=== PATIENT | female | born 1950 | race African-American/Black ===

== ENCOUNTER 2025-02-14 14:02 | Outpatient (AMB) | payer OTHER, SELFPAY ==
--- NOTE | 2025-02-14 14:08 | MHC.PC.OV ---
Vital Signs 02/14/25 14:13 Height 5 ft 3.5 in Weight 142 lb 8 oz BMI 24.8 BP 110/64 Blood Pressure Location Lt brachial Position Sitting Respiration 16 Pulse 68 Pulse Source Pulse Oximeter Temp 96.8 F Temp Source Temporal Artery Scan Pulse Oximetry (%) 98 Oxygen Delivery Method Room Air Intake Visit Reasons: New Patient Re [facility] Vocational Placement Specialist Required: No Accompanied by: Self / Same As Patient Allergies No Known Allergies Allergy (Verified 02/14/25 14:15) Medication List - Last Reconciled 02/14/25 by Rita Miranda MD acyclovir 400 mg PO BID apixaban (Eliquis) 2.5 mg PO BID ascorbate calcium (vitamin C) 500 mg PO DAILY atropine 1% 1 drp ophthalmic (eye) BID brimonidine 0.1% (Alphagan P) 1 drp ophthalmic-Right TID calcium carbonate 600 mg PO DAILY cholecalciferol (vitamin D3) 50 mcg PO DAILY coenzyme Q10 100 mg PO DAILY cyanocobalamin (vitamin B-12) 1,000 mcg PO 2XW dorzolamide-timolol (PF) 2-0.5 % (Cosopt (PF)) 1 drp ophthalmic-Right TID hydrochlorothiazide 12.5 mg PO DAILY latanoprostene bunod 0.024% (Vyzulta) 1 drp ophthalmic-Right BEDTIME lenalidomide mg PO methazolamide 50 mg PO TID prednisolone acetate 1% 1 drp ophthalmic (eye) QID simvastatin 20 mg PO QPM vitamins A,C,S-eqcc-goxihn 4,296 mcg-226 mg-90 mg (PreserVision AREDS) 1 cap PO BID Tobacco use date assessed: 02/14/25 Fall risk assessment: No Falls in past year Last assessed Fall Risk: 02/14/25 Dental Screening Dental Screen Date: 02/14/25 Did you have a dental visit in the last 12 months?: Yes Did you have a dental problem in the last 6 months where you did not have access to dental care?: No Was dental information given to patient?: Patient has dentist HPI HPI Comments History of Present Illness Details The patient is a 75 year old female presenting to [facility]. Cardiovascular History/HTN/Hyperlipidemia: The patient has a history of chest pain, for which she was evaluated in the ER and subsequently wore a Holter monitor. She has been followed by cardiology, previously by Dr. Hampton at [facility] and now by Dr. Deborah Welch. She has a follow-up appointment with her product development manager scheduled for June. She reports some recent leg swelling that improves with wearing compression socks. Multiple Myeloma/Amyloidosis: The patient has specialists at [facility] and [facility]. History of Colon Polyps: The patient has a history of colon polyps and underwent a colonoscopy in March and a subsequent one around December. Another polyp was found during the more recent procedure, which was described as benign. She denies any recent bleeding episodes. Will obtain records. History of DVT- on continued eliquis due to concurrent malignancy History of Hyperthyroidism- due for repeat tfts Preventative Care: The patient reports being up-to-date on her COVID and flu shots, which she received in the fall. She has also received the RSV vaccine. She sees an psychological anthropologist at [facility] in [place], and last saw her this month. Notes significantly reduced vision in left eye. Was previously seeing Dr. London. [facility] Medical History (Updated 02/14/25 @ 18:30 by Rita Miranda MD) DVT (deep venous thrombosis) Amaurosis fugax Central retinal vein occlusion Hyperparathyroidism Thyroid nodule PVCs (premature ventricular contractions) Hyperthyroidism Primary hypertension Amyloidosis Multiple myeloma Colon polyp Surgical History (Updated 02/14/25 @ 13:18 by Rita Miranda MD) H/O: hysterectomy History of colonoscopy (~12/12/24) Social History Housing: House Patient Tobacco Use Status: Never used Tobacco e-Cigarette/Vaping Use: Never Used Current occupational status: retired Questionnaire PHQ-9 Over the last 2 weeks, how often have you been bothered by any of the following problems? 1. Little interest or pleasure in doing things: not at all 2. Feeling down, depressed, or hopeless: not at all 3. Trouble falling or staying asleep, or sleeping too much: not at all 4. Feeling tired or having little energy: not at all 5. Poor appetite or overeating: not at all 6. Feeling bad about yourself - or that you are a failure or have let yourself or your family down: not at all 7. Trouble concentrating on things, such as reading the newspaper or watching television: not at all 8. Moving or speaking so slowly that other people could have noticed. Or the opposite - being so fidgety or restless that you have been moving around a lot more than usual: not at all 9. Thoughts that you would be better off or of hurting yourself in some way: not at all Total score: 0 Depression Screening Interpretation: Negative Depression Screening Done: Yes 99742 - PHQ-9 Billing: Yes Source: Developed by Drs. Herman August, Hannah Bess, London Higgins and colleagues, with an educational brittani from [employer]. Thrive Questionnaire Date Thrive assessed: 02/14/25 I am a: Patient What is your living situation today?: I have a steady place to live Within the past 12 months, did the food you bought not last and you didn't have the money to get more?: Often true Within the past 12 months, did you worry whether your food would run out before you got money to buy more?: Never true Do you have trouble paying for medicines?: No Do you have trouble getting transportation to medical appointments?: No Do you have trouble paying your heating and electricity bill?: No Do you have trouble taking care of your child, family member or friend?: No Do you have trouble with day-to-day activities such as bathing, preparing meals, shopping, managing finances, etc.?: No Are you currently unemployed and looking for a job?: No Are you interested in more education?: No Please select the resources that you would like help with: None Currently or been in a relationship where the following occur: I choose not to answer THRIVE Score: 1 AUDIT C Alcohol Use Questionnaire (AUDIT-C) 1. How often do you have a drink containing alcohol?: Never 3. How often do you have six or more drinks on one occasion?: Never Total Score: 0 ROYER-7 AMB Questionnaire ROYER-7 Date ROYER - 7 assessed: 02/14/25 Feeling nervous, anxious, or on edge: 0 = Not at all Not being able to stop or control worryin = Not at all Worrying too much about different things: 0 = Not at all Trouble relaxin = Not at all Being so restless that it is hard to sit still: 0 = Not at all Becoming easily annoyed or irritable: 0 = Not at all Feeling afraid as if something awful might happen: 0 = Not at all Total ROYER-7 score (0-4 normal; 5-9 mild; 10-14 moderate; 15-21 severe): 0 Source: Developed by Drs. Herman August, Hannah Bess, London Higgins and colleagues, with an educational brittani from [employer]. Review of Systems Narrative Review of Systems - Constitutional: Denies systemic symptoms but reports feeling overwhelmed by multiple appointments and expresses feeling good with a strong support system. - Cardiovascular: Reports a history of chest pain. Denies current chest pain. - GI: Denies rectal bleeding. - Musculoskeletal: per hpi Physical exam (Primary Care) Vital Signs: Last Vital Signs Temp 96.8 F 02/14/25 14:13 Pulse 68 02/14/25 14:13 Resp 16 02/14/25 14:13 BP 110/64 02/14/25 14:13 Pulse Ox 98 02/14/25 14:13 Oxygen Delivery Method Room Air 02/14/25 14:13 BMI result Body Mass Index 24.8 Tobacco/Smoking Status: Tobacco use Status Tobacco use date assessed 02/14/25 02/14/25 14:12 Patient Tobacco Use Status Never used Tobacco 02/14/25 14:22 e-Cigarette/Vaping Use Never Used 02/14/25 14:22 PHQ-9: PHQ-9 Score PHQ-9: Total score 0 02/14/25 14:46 Depression Screening Interpretation: Negative Thrive Assessment: Date of Thrive Assessment Date Thrive assessed 02/14/25 02/14/25 14:12 Currently or been in a relationship where the following occur: I choose not to answer Narrative Physical Exam - Cardiovascular: Regular rhythm. Normal S1/S2. A soft murmur is present. - Respiratory: Lungs are clear to auscultation bilaterally. No wheezing. - Abdomen: Soft with normal bowel sounds. Non-tender to deep palpation. Reports tenderness to tapping, which she relates to needing to use the bathroom. - Lymphatic: No cervical or supraclavicular lymphadenopathy. - Extremities: no lower extremity edema bilaterally. Coding Level of Care Code Est Pt Level 4 (05952) Add On Problem Visit Only Diagnoses Multiple myeloma, remission status unspecified C90.00 Multiple myeloma remission status: unspecified Amyloidosis, unspecified type E85.9 Amyloidosis type: unspecified amyloidosis Primary hypertension I10 Hyperthyroidism E05.90 Additional Codes PHQ-9 - 55521 - PHQ-9 Billing: Yes ([id number]) Assessment & Plan Assessment & Plan (1) Multiple myeloma: Code(s): C90.00 - Multiple myeloma not having achieved remission Category: Medical Qualifiers: Multiple myeloma remission status: unspecified Qualified Code(s): C90.00 - Multiple myeloma not having achieved remission (2) Amyloidosis: Code(s): E85.9 - Amyloidosis, unspecified Category: Medical Qualifiers: Amyloidosis type: unspecified amyloidosis Qualified Code(s): E85.9 - Amyloidosis, unspecified (3) Primary hypertension: Code(s): I10 - Essential (primary) hypertension Category: Medical (4) Hyperthyroidism: Code(s): E05.90 - Thyrotoxicosis, unspecified without thyrotoxic crisis or storm Category: Medical Plan Assessment and Plan 1. Re-establishing care - The patient is a 75-year-old female here to re-establish primary care. - The patient will complete fasting labs today, including a CBC, comprehensive panel, TSH, B12, and vitamin D. A wellness visit is scheduled for April after her sub-specialty appointments in March. 2. Cardiovascular issues (History of chest pain, Heart murmur, HTN, Hyperlipidemia) - The patient is followed by cardiology, currently seeing Dr. Deborah Alvarado, with a follow-up in June. - She takes hydrochlorothiazide for blood pressure, which is reportedly well-controlled. - She takes simvastatin 20 mg for cholesterol. - Labs ordered today will check potassium and cholesterol levels. - She will continue her current medications. - She reports using compression stockings and will be advised to use higher-strength 20-30 mmHg stockings for flights. 3. Multiple myeloma/amyloidosis - continue current management 4. History of Colon Polyps - The patient had a colonoscopy in December 2024 where a benign polyp was found. - She denies any bleeding. - Will attempt to obtain the pathology report from [facility] - Given her history continued surveillance is appropriate 5. Hyperthyroidism- check thyroid panel, due for follow up with [facility] endocrinology Plan - Renewed prescriptions - Ordered fasting labs including CBC, comprehensive panel, TSH, B12, and vitamin D. - Will request medical records - Schedule a wellness visit for April. Patient Instructions - Continue to take your medications as prescribed. - You have a follow-up appointment for your yearly physical scheduled for April. - Continue your scheduled follow-up appointments with your specialists - For your upcoming flight to [place], please wear the tighter, 20-30 mmHg strength, compression stockings. - Please contact the office by phone or through the patient portal if any new concerns arise. Orders: Orders Magnesium Today C90.00 - Multiple myeloma not having achieved remission, E05.90 - Thyrotoxicosis, unspecified without thyrotoxic crisis or storm, E85.9 - Amyloidosis, unspecified, I10 - Essential (primary) hypertension Lipid Panel Today C90.00 - Multiple myeloma not having achieved remission, E05.90 - Thyrotoxicosis, unspecified without thyrotoxic crisis or storm, E85.9 - Amyloidosis, unspecified, I10 - Essential (primary) hypertension Vitamin D 25-OH Total Today C90.00 - Multiple myeloma not having achieved remission, E05.90 - Thyrotoxicosis, unspecified without thyrotoxic crisis or storm, E85.9 - Amyloidosis, unspecified, I10 - Essential (primary) hypertension Complete Blood Count Auto Diff Today C90.00 - Multiple myeloma not having achieved remission, E05.90 - Thyrotoxicosis, unspecified without thyrotoxic crisis or storm, E85.9 - Amyloidosis, unspecified, I10 - Essential (primary) hypertension Comprehensive Met. Panel Today C90.00 - Multiple myeloma not having achieved remission, E05.90 - Thyrotoxicosis, unspecified without thyrotoxic crisis or storm, E85.9 - Amyloidosis, unspecified, I10 - Essential (primary) hypertension TSH reflex Free T4 Today C90.00 - Multiple myeloma not having achieved remission, E05.90 - Thyrotoxicosis, unspecified without thyrotoxic crisis or storm, E85.9 - Amyloidosis, unspecified, I10 - Essential (primary) hypertension Vitamin B12 Today C90.00 - Multiple myeloma not having achieved remission, E05.90 - Thyrotoxicosis, unspecified without thyrotoxic crisis or storm, E85.9 - Amyloidosis, unspecified, I10 - Essential (primary) hypertension Microalbumin, Random (w Creat) Today C90.00 - Multiple myeloma not having achieved remission, E05.90 - Thyrotoxicosis, unspecified without thyrotoxic crisis or storm, E85.9 - Amyloidosis, unspecified, I10 - Essential (primary) hypertension Medications: New simvastatin 20 mg PO QPM 90 tabs 3RF cholecalciferol (vitamin D3) 50 mcg PO DAILY 90 caps 3RF hydrochlorothiazide 12.5 mg PO DAILY 90 tabs 3RF apixaban (Eliquis) 2.5 mg PO BID 60 tabs 11RF
[2025-02-14 14:13] VITALS: BP 110/64; PULSE 68; RESP 16; TEMP 36; O2SAT 98; BMI 24.8
--- OUTSIDE RECORDS SUMMARY | 2025-02-14 19:27 | XMS_ITS | Encounter Summary ---
Author Organization [facility] Address [address] [place] [address] Care Team Providers Care Client Service Associate Name Role Phone Physician, Jo Pcp Primary Care Provider Unavaila ble Encounter Details Date Type Department Care Team ([facility] st Contact Info) Description 12/16/2024 Results Follow-Up Gastroenterology - [address] [phone] Jamie Stevenson MD [address] [place] [id number] Social History Tobacco Use Types Packs/Day Years Used Date Smoking Tobacco: Never Smokeless Tobacco: Never Alcohol Use Standard Drinks/Week Comments No 0 (1 standard drink = 0.6 oz pur e alcohol) Interpersonal Safety Answer Date Record ed Physical Abuse Unrecognized value 12/12/2024 Verbal Abuse Unrecognized value 12/12/2024 Comments No Sex and Gender Information Value Date Recorded Sex Assigned at Not on file Legal Sex Female 3:52 PM EST Gender Identity Not on file Sexual Orientation Not on file documented as of this encounter Plan of Treatment Not on file documented as of this encounter Goals Goal Patient Goal Type Associated Problems Recent Progress Patient-Stated? Author Adan simmons Goal Care Plan Autogenerated Problem No Emelia Agustin documented as of this encounter Visit Diagnoses Not on filedocumented in this encounter Additional Health Concerns Active Problems Noted Date Diagnosed Date Autogenerated Problem 12/02/2024 documented as of this encounter Care Teams Client Service Associate Relationship Specialty Start Date End Date Physician, No Pcp PCP - General 12/12/24 documented as of this encounter
--- OUTSIDE RECORDS SUMMARY | 2025-02-14 19:27 | XMS_ITS | Encounter Summary ---
Author Organization [facility] Address [address] [place] [phone] Phone Care Team Providers Care Tax Services Intern Name Role Phone Rita Miranda MD Primary Care Provider + Bela London MD Unavailable Omkar Lindsay MD Unavailable Tre Dickinson MD Unavailable Raj Bruner MD Unavailable [phone] Irina Hampton MD Unavailable [phone] Markus Macdonald MD Unavailable Petty Schultz MD Unavailable [phone] Encounter Details Date Type Department Care Team (Late st Contact Info) Description 11/27/2023 Transcribe Orders [facility] [address] Pcp, Unknown Social History Tobacco Use Types Packs/Day Years Used Date Smoking Tobacco: Never Smokeless Tobacco: Never Alcohol Use Standard Drinks/Week Comments Not Currently 0 (1 standard drink = 0.6 oz pur e alcohol) Education Answer Date Recorded Are you interested in more education? Not on lisset e 07/01/2022 Are you concerned about learning? Not on file 07/01/2022 No 07/01/2022 No 07/01/2022 Digital Access Answer Date Recorded No 07/30/2022 No 07/30/2022 Reliable internet access at home? Not on file 07/30/2022 Device with a working camera? Not on file Comments Unknown Sex and Gender Information Value Date Recorded Sex Assigned at Female 02/03/2022 10:41 AM EST Legal Sex Female 11:45 AM EST Gender Identity Female 02/03/2022 10:41 AM EST Sexual Orientation Straight 02/03/2022 10 :41 AM EST documented as of this encounter Plan of Treatment Upcoming Encounters Date Type Department Care Team (Late st Contact Info) Description 04/01/2025 1:20 PM EST Office Visit [facility] [address] [place] [address] Viridiana Rosario MD [address] [facility] [address] [place] [address] [email or web address] 04/04/2025 11:50 AM EST Blood Draw [facility] Services, [address] [place] [address] Petty Schultz MD [address] [place] [phone] [email or web address] 04/04/2025 1:00 PM EST Office Visit [facility], Division of Hematologic Oncology, [address] [place] [address] Petty Schultz MD [address] [place] [id number] [email or web address] 09/30/2025 1:30 PM EDT Blood Draw Laboratory Services, [address] [place] [address] Petty Schultz MD [address] [place] [id number] [email or web address] 09/30/2025 2:30 PM EDT Office Visit [facility], Division of Hematologic Oncology, [facility] [address] [place] [address], [address] [place] [address] Petty Schultz MD [address] [place] [id number] [email or web address] documented as of this encounter Visit Diagnoses Not on filedocumented in this encounter Care Teams Tax Services Intern Relationship Specialty Start Date End Date Rita Miranda MD PCP - General Internal Medicine 04/19/16 Bela London MD [address] [place] [phone] Ophthalmology 09/16/17 Omkar Lindsay MD [address] [place] [address] Ophthalmology 09/16/17 Tre Dickinson MD [address] [place] [address] Hematology and Oncology 12/21/21 Raj Bruner MD [address] [place] [address] Myeloma Clinic, Floor [address] [place] [address] [email or web address] Hematology and Oncology 12/21/21 03/31/24 Irina Hampton MD [address] [place] [address] Cardiology 02/04/22 Markus Macdonald MD [address] [facility] [place] [address] [email or web address] 03/28/23 Petty Schultz MD [address] [place] [phone] [email or web address] Hematology and Oncology 04/01/24 documented as of this encounter Additional Source Comments The information contained in this document represents components of the legal health record. It is not the complete legal health record.[facility]
--- OUTSIDE RECORDS SUMMARY | 2025-02-14 19:27 | XMS_ITS | Clinical Summary ---
Author Organization [facility] 299 Formerly [facility] Address [address] [place] [address] Phone Care Team Providers Care Home Care Giver Name Role Phone Physician, No Pcp Primary Care Provider Unavaila ble Allergies Active Allergy Reactions Criticality Noted Date Comments Bimatoprost Unknown 09/14/2017 Medications brimonidine tartrate (ALPHAGAN P OPHT) None Entered Active tafluprost, PF, 0.0015 % dropperette apply to the eye. Active calcium carbonate 250 mg/mL (100 mg/mL elemental calcium) suspension Take 2 mL (500 mg total) by mouth daily. Active cholecalciferol (VITAMIN D-3) 25 mcg (1,000 unit) tablet Take 1 tablet (1,000 Units total) by mouth 1 (one) time each day. Active cyanocobalamin (VITAMIN B-12) 1,000 mcg tablet TAKE 1 TABLET BY MOUTH TWICE PER WEEK Active denosumab (XGEVA SUBQ) Inject 120 mg under the skin every 30 (thirty) days. 4 Active methazolAMIDE (NEPTAZANE) 50 mg tablet Take 1 tablet (50 mg total) by mouth. Active coenzyme Q-10 100 mg capsule Take 1 capsule (100 mg total) by mouth daily. Active apixaban (ELIQUIS) 2.5 mg tablet Take 1 tablet (2.5 mg total) by mouth 2 (two) times a day. Active simvastatin (ZOCOR) 20 mg tablet Take 1 tablet (20 mg total) by mouth at bedtime. Active lenalidomide (REVLIMID) 5 mg capsule Take 2 capsules (10 mg total) by mouth Active dorzolamide-annemarie oloL (Cosopt) 22.3-6.8 mg/mL ophthalmic solution Administer 1 drop into affected eye(s). 9 Active vitamins A,C,E-zinc-hilda er 4,296 mcg-226 mg-90 mg capsule Take 1 capsule by mouth 2 times daily. Active prednisoLONE acetate (PRED FORTE) 1 % ophthalmic suspension LOCATION: LEFT EYE. 1 DROP TO LEFT EYE 4 TIMES PER DAY 4 Active nitroglycerin (NITROSTAT) 0.[address] 1 tablet (0.4 mg total) under the tongue. 4 Active vitamin C tablet Take 1 tablet (100 mg total) by mouth daily. 1 Active acyclovir (ZOVIRAX) 400 mg tablet Take 1 tablet (400 mg total) by mouth 2 (two) times a day. for 30 days Active atropine 1 % ophthalmic solution LOCATION: LEFT EYE. 1 DROP TO LEFT EYE EVERY 12 HOURS 4 Active difluprednate (DUREZOL) 0.05 % OPHTHalmic solution PLACE 2 DROPS INTO LEFT EYE TWICE A DAY 4 Active Cosopt, PF, 2-0.5 % dropperette INSTILL 1 DROP INTO BOTH EYES 3 TIMES A DAY DIRECTED Active Vyzulta 0.024 % drops Administer 1 drop into both eyes. at ebdtime as directed Active bisacodyL (DULCOLAX) 5 mg EC tablet Take 2 tablets by mouth right before beginning bowel prep. See instructions provided by the office 2 tablet 5 Active polyethylene glycol (Golytely) 236-22.74-6.74 -5.86 gram solution Take 4L by mouth once for one dose. May substitue any PEG. Starting at 2PM the day before your procedure drink 1 8oz glasses at your own pace until you complete half of the gallon. Finish 2nd half of the gallon at 8PM. 4000 mL 5 Active Active Problems Problem Noted Date Diagnosed Date Bright red rectal bleeding 01/10/2024 Heme positive stool 01/10/2024 Glaucoma 01/26/2015 Encounters Date Type Department Care Team Description 12/16/2024 Results Follow-Up Gastroenterology - [address] [place] [address] [phone] Jamie Stevenson MD 12/12/2024 12:46 PM EDT Anesthesia Event [facility] Endoscopy [address] [place] [phone] Charanjit Gandhi MD 12/12/2024 11:12 AM EDT - 12/12/2024 11:59 PM EDT Hospital Encounter [facility] Endoscopy [address] [place] [phone] Jamie Stevenson MD Dickman, Christy L, CRNA Hx of colonic polyps Discharge Disposition: Home or Self Care 12/10/2024 Telephone Gastroenterology - 299 [facility] [address] [phone] Jamie Stevenson MD from Last 3 Months Surgical History Surgery Date Site/Laterality Comments OTHER SURGICAL HISTORY 1989 PROCEDURE: HISTORICAL TOTAL HYSTERECTOMY W/O BSO HYSTERECTOMY Medical History Medical History Date Comments Personal history of multiple myeloma Amyloidosis ([facility] V24, [facility] V28) DVT (deep venous thrombosis) ([facility] V24, [facility] V28) Remi's disease Eosinophilic esophagitis Glaucoma Hyperlipidemia Colon polyp Family History Medical History Relation Name Comments Other cancer Mother luekemia Breast cancer Neg Hx Colon cancer Neg Hx Ovarian cancer Neg Hx Relation Name Status Comments Mother Social History Tobacco Use Types Packs/Day Years [...] on file Sexual Orientation Not on file Obstetrics History Para Term AB IAB SAB Ectopic Multiple Livin g Live Births 1 Last Filed Vital Signs Vital Sign Reading Time Taken Comments Blood Pressure 134/75 12/12/2024 1:28 PM EDT Pulse 68 12/12/2024 1:28 PM EDT Temperature 36.8 C (98.3 F) 12/12/2024 1:08 PM EDT Respiratory Rate 16 12/12/2024 1:28 PM EDT Oxygen Saturation 98% 12/12/2024 1:28 PM EDT Inhaled Oxygen Concentration - - Weight 63 kg (139 lb) 12/12/2024 11:39 AM EDT Height 160 cm (5' 3 ) 12/12/2024 11:39 AM EDT Body Mass Index 24.62 12/12/2024 11:39 AM EDT Plan of Treatment Health Maintenance Due Date Last Done Comments DTaP,Tdap,and Td Vaccines (1 - Tdap) 01/04/1968 Cholesterol Screening (Lipid Panel) 02/02/2022 Hepatitis C Screening 02/02/2022 Medicare Annual Wellness Visit 02/02/2022 Osteoporosis Screening (Bone Density Screening) 02/02/2022 Social Influencers of Health Screening 02/02/2022 Depression Screening 03/06/2024 COVID-19 Vaccine ( season) 2024 11/24/2023, 01/17/2023, 12/02/2021, Additional history exists Hypertension/CHF/CAD Annual BMP Blood Test 10/03/2025 10/03/2024, 10/03/2024, 10/01/2024, Additional history exists Falls Risk Assessment 12/12/2025 12/12/2024 Zoster Vaccines Completed 11/19/2018, 09/2018, 09/22/2011 Pneumococcal Vaccine: 50+ Years Completed 09/24/2021, 12/11/2015, 01/10/2014 RSV Immunization Adult Patients Completed 01/15/2024 Breast Cancer Screening Discontinued 11/06/19, 11/03/2023, 10/07/2022, Additional history exists Influenza Vaccine Completed 12/06/2024, , 12/14/2022, Additional history exists Colorectal Cancer Screening: Colonoscopy Discontinued 12/12/2024, 03/12/2024, 01/11/2024 HIB Vaccines Aged Out No longer eligi ble based on patient's age to complete this topic HPV Vaccines Aged Out No longer eligi ble based on patient's age to complete this topic Hepatitis A Vaccines Aged Out No long er eligible based on patient's age to complete this topic Hepatitis B Vaccines Aged Out No long er eligible based on patient's age to complete this topic IPV Vaccines Aged Out No longer eligi ble based on patient's age to complete this topic MMR Vaccines Aged Out No longer eligi ble based on patient's age to complete this topic Meningococcal ACWY Vaccine Aged Out N o longer eligible based on patient's age to complete this topic Meningococcal B Vaccine Aged Out No l onger eligible based on patient's age to complete this topic RSV Immunization Patients Under 20 months Aged Out No longer eligible based on patient's age to complete this topic Varicella Vaccines Aged Out No longer eligible based on patient's age to complete this topic Goals Goal Patient Goal Type Associated Problems Recent Progress Patient-Stated? Author Autogenera iris Goal Care Plan Autogenerated Problem No Emelia Agustin Procedures Procedure Name Priority Date/Time Associated Diagnosis Comments COLONOSCOPY Routine 12/12/2024 1:07 PM EDT Hx of colonic polyps TISSUE EXAM Routine 12/12/2024 12:59 PM EDT Hx of colonic polyps MG MAMMO DIGITAL SCREENING W LUIZ BILAT Routine 11/05/2024 10:04 AM EDT Encounter for screening mammogram for breast cancer from Last 3 Months or Most Recently Relevant to Health Maintenance Results * COLONOSCOPY Anesthesia - MAC; [facility] ENDOSCOPY (12/12/2024 1:07 PM EDT) Anatomical Region Laterality Modality Endoscopy 12/12/2024 12:1 0 PM EDT Impressions 12/12/2024 1:09 PM EDT - One 4 mm polyp in the ascending colon. Biopsied. - The examination was otherwise normal on direct and retroflexion views. Recommendation: - Await pathology results. - Repeat colonoscopy in 2 years for surveillance. Narrative 12/12/2024 1:09 PM EDT [facility] GI Patient Name: Roxana Ball Procedure Date: 12/12/2024 12:10 PM Date of : 1950 Age: 74 Room: ROOM 16 Gender: Female Note Status: Finalized Attending MD: Jamie Stevenson MD, Procedure Date No Time: 12/12/2024 Procedure: Colonoscopy Indications: Surveillance: Piecemeal removal of large sessile adenoma last colonoscopy (< 3 yrs) Providers: Jamie Stevenson MD Referring MD: Jamie Stevenson MD Medicines: Propofol per Anesthesia Complications: No immediate complications. Estimated Blood Loss: Estimated blood loss: none. Procedure: Pre-Anesthesia Assessment: - ASA Grade Assessment: II - A patient with mild systemic disease. After I obtained informed consent, the scope was passed under direct vision. Throughout the procedure, the patient's blood pressure, pulse, and oxygen saturations were monitored continuously.The Colonoscope was introduced through the anus and advanced to the cecum, identified by appendiceal orifice and ileocecal valve. The colonoscopy was performed without difficulty. The patient tolerated the procedure well. The quality of the bowel preparation was adequate. Findings: The perianal and digital rectal examinations were normal. A 4 mm polyp was found in the ascending colon. The polyp was sessile. This was biopsied with a cold jumbo forceps for histology. The exam was otherwise without abnormality on direct and retroflexion views. Procedure Code(s): --- Professional --- 71111, Colonoscopy, flexible; with biopsy, single or multiple Diagnosis Code(s): --- Professional --- Z86.010, Personal history of colonic polyps D12.2, Benign neoplasm of ascending colon CPT copyright 2020 [employer]. All rights reserved. The codes documented in this report are preliminary and upon clerical investigator review may be revised to meet current compliance requirements. Jamie Stevenson MD 12/12/2024 1:09:17 PM This report has been signed electronically.Jamie Stevenson MD Number of Addenda: 0 Note Initiated On: 12/12/2024 12:10 PM Scope In: Scope Out: Endoscopy Department at [facility] - [address] [place] [phone] Procedure Note Jamie Stevenson MD - 12/12/2024 [facility] GI Patient Name: Roxana Ball Procedure Date: 12/12/2024 12:10 PM Date of : 1950 Age: 74 Room: ROOM 16 Gender: Female Note Status: Finalized Attending MD: Jamie Stevenson MD, Procedure Date No Time: 12/12/2024 Procedure: Colonoscopy Indications: Surveillance: Piecemeal removal of large sessile adenoma last colonoscopy (< 3 yrs) Providers: Jamie Stevenson MD Referring MD: Jamie Stevenson MD Medicines: Propofol per Anesthesia Complications: No immediate complications. Estimated Blood Loss: Estimated blood loss: none. Procedure: Pre-Anesthesia Assessment: - ASA Grade Assessment: II - A patient with mild systemic disease. After I obtained informed consent, the scope was passed under direct vision. Throughout theprocedure, the patient's blood pressure, pulse, and oxygen saturations were monitored continuously.The Colonoscope was introduced through the anus and advanced to the cecum, identified by appendiceal orifice and ileocecal valve. The colonoscopy was performed without difficulty. The patient tolerated the procedure well. The quality of the bowel preparation was adequate. Findings: The perianal and digital rectal examinations were normal. A 4 mm polyp was found in the ascending colon. The polyp was sessile. This was biopsied with a coldjumbo forceps for histology. The exam was otherwise without abnormality ondirect and retroflexion views. Procedure Code(s): --- Professional --- 09676, Colonoscopy, flexible; with biopsy, singleor multiple Diagnosis Code(s): --- Professional --- Z86.010, Personal history of colonic polyps D12.2, Benign neoplasm of ascending colon CPT copyright 2020 [employer]. All rights reserved. The codes documented in this report are preliminary and upon clerical investigator reviewmay be revised to meet current compliance requirements. Jamie Stevenson MD 12/12/2024 1:09:17 PM This report has been signed electronically.Jamie Stevenson MD Number of Addenda: 0 Note Initiated On: 12/12/2024 12:10 PM Scope In: Scope Out: Endoscopy Department at [facility] - [address] [place] [phone] IMPRESSION: - One 4 mm polyp in the ascending colon. Biopsied. - The examination was otherwise normal on directand retroflexion views. Recommendation: - Await pathology results. - Repeat colonoscopy in 2 years for surveillance. Jamie Stevenson MD GI~PROCEDURE ORDERABLES Fin al Result * Tissue exam (12/12/2024 12:59 PM EDT) Final Diagnosis Ascending Colon, polyp: Benign polypoid fragment of colonic mucosa with prominent lymphoid aggregate. No dysplasia or neoplasia identified. 12/13/2024 11:22 AM EDT [facility] at 1122 EDT Gross Description A. Large Intestine, Right/Ascend ing Colon, polyp: Labeled polyp in ascend colon . Received in formalin is a soft, billingsley-pink, thin, 0.2 cm in greatest diameter polypoid tissue which is inked shamika at the base, wrapped in paper and submitted in toto in one cassette, one piece, multiple levels. TS 12/13/2024 11:22 AM EDT [facility] Disclaimer Unless otherwise specified, all tissue is 10% NB formalin fixed and paraffin embedded. 12/13/2024 11:22 AM EDT [facility] Tissue Ascending colon structure / Unknown 12/12/2024 12:59 PM EDT 12/12/2024 1:48 PM EDT us Jamie Stevenson MD LAB PATHOLOGY ORDERABLES Fi nal Result [facility] [address] [place] [address], * MG Mammo Digital Screening w Luiz bilat (11/05/2024 10:04 AM EDT) Anatomical Region Laterality Modality Breast Bilateral Mammography 11/05/2024 10:0 6 AM EDT Impressions 11/05/2024 10:11 AM EDT No mammographic evidence of malignancy. A negative mammogram in the presence of a clinically suspicious palpable abnormality does not preclude the possibility of malignancy or alter the indications for biopsy. PQRI CPT II 3342F Code 88363, 24020 PQRI 225 CPT II 7025F TISSUE DENSITY: There are scattered areas of fibroglandular density. (BI-RADS category B) IMPRESSION: Benign. BI-RADS CATEGORY: 2 - BENIGN RECOMMENDATION: Screening bilateral mammogram is recommended in 1 year. Mammo Location: [facility], [facility], [address] [place] [id number] -------- FINAL REPORT -------- Dictated By: Aguila Taylor Dictated Date: 11/05/2024 10:06 ET Assigned Physician: Aguila Taylor Reviewed and Electronically Signed By: Aguila Taylor Signed Date: 11/05/2024 10:11 ET Workstation ID: [id number] Transcribed By: Self Edit Transcribed Date: 11/05/2024 10:06 ET Narrative 11/05/2024 10:11 AM EDT CLINICAL: The patient is a 74 years Female presenting for routine screening mammography. COMPARISON: Most recently 11/02/2023 and most remotely 09/15/2016. TECHNIQUE: Full-field digital mammography of the breasts bilaterally consisting of tomosynthesis in MLO and CC projection is performed in the Me[employer] 2000-D unit. Computer aided detection utilizing the iCAD system was utilized. FINDINGS: The breasts are seen to be composed of a combination of fatty and fibroglandular elements. Bilateral benign punctate and vascular calcifications are without suspicious interval change. There is no suspicious cluster of microcalcifications, mass, or area of architectural distortion. There is no skin thickening or nipple retraction. Procedure Note Aguila Taylor MD - 11/05/2024 CLINICAL: The patient is a 74 years Female presenting for routinescreening mammography. COMPARISON: Most recently 11/02/2023 and most remotely 09/15/2016. TECHNIQUE: Full-field digital mammography of the breasts bilaterallyconsisting of tomosynthesis in MLO and CC projection is performed in theBankofpokerographe 2000-D unit. Computer aided detection utilizing the iCADsystem was utilized. FINDINGS: The breasts are seen to be composed of a combination of fattyand fibroglandular elements. Bilateral benign punctate and vascularcalcifications are without suspicious interval change. There is nosuspicious cluster of microcalcifications, mass, or area of architecturaldistortion. There is no skin thickening or nipple retraction. IMPRESSION: No mammographic evidence of malignancy. A negative mammogram in the presence of a clinically suspicious palpableabnormality does not preclude the possibility of malignancy or alter theindications for biopsy. PQRI CPT II 3342F Code 48444, 13974 PQRI 225 CPT II 7025F TISSUE DENSITY: There are scattered areas of fibroglandular density.(BI-RADS category B) IMPRESSION: Benign. BI-RADS CATEGORY: 2 - BENIGN RECOMMENDATION: Screening bilateral mammogram is recommended in 1 year. Mammo Location: [facility], [facility], [address] [place] [id number] -------- FINAL REPORT -------- Dictated By: Aguila Taylor Dictated Date: 11/05/2024 10:06 ET Assigned Physician: Aguila Taylor Reviewed and Electronically Signed By: Aguila Taylor Signed Date: 11/05/2024 10:11 ET Workstation ID: [id number] Transcribed By: Self Edit Transcribed Date: 11/05/2024 10:06 ET us Self Referral [facility] IMG BI PROCEDURES Final Resul t from Last 3 Months or Most Recently Relevant to Health Maintenance Additional Health Concerns Active Problems Noted Date Diagnosed Date Autogenerated Problem 12/02/2024 Insurance MEDICARE [facility] Care Teams Home Care Giver Relationship Specialty Start Date End Date Physician, No Pcp PCP - General 12/12/24
--- OUTSIDE RECORDS SUMMARY | 2025-02-14 19:27 | XMS_ITS | Clinical Summary ---
Author Organization [facility] Address [address] [facility] [address] [place] [address] Care Team Providers Care Nursing Agency Manager Name Role Phone Unavailable Primary Care Provider Unavailabl e Allergies Active Allergy Reactions Criticality Noted Date Comments Bimatoprost 09/14/2017 Medications Multiple Vitamins-Minera ls (ICAPS AREDS 2 PO) Take by mouth. 1 Active acyclovir (Zovirax) 400 MG tablet Take 400 mg by mouth 2 times daily. 3 Active apixaban (Eliquis) 5 MG tablet See Instructions, TAKE 1 TABLET BY MOUTH TWICE A DAY, # 60 tablet, 3 Refills, Maintenance, 03/29/22 11:51:00 EST, [facility], 162, cm, 03/29/22 10:41:00 EST, Height, 64.7, kg, 03/29/22 10:41:00 EST, Dry Weight 2 Active Tafluprost, PF, 0.0015 % solution Administer into affected eye(s). 5 Active sulfamethoxazol e-trimethoprim (Bactrim DS) 800-160 MG tablet See Instructions, TAKE 1 TABLET BY MOUTH EVERY MONDAY, MONDAY AND MONDAY FOR 30 DAYS, # 13 tablet, 5 Refills, Maintenance, 06/20/22 11:47:00 EDT, [facility], 30, TAKE 1 TABLET BY MOUTH EVERY MONDAY, MONDAY AND MONDAY FOR 30 DAYS, 162, cm, 0... 2 Active simvastatin (Zocor) 10 MG tablet Take 10 mg by mouth at bedtime. 3 Active ondansetron (Zofran) 4 MG tablet TAKE 1-2 TABLETS BY MOUTH EVERY 8 HOURS NEEDED FOR NAUSEA 3 Active mirtazapine (Remeron) 7.5 MG tablet Take 1 tablet by mouth. 3 Active metoprolol succinate XL (Toprol-XL) 25 MG 24 hr tablet Take 25 mg by mouth in the morning. 3 Active Vyzulta 0.024 % solution INSTILL 1 DROP INTO BOTH EYES AT BEDTIME DIRECTED 3 Active methazolAMIDE (Neptazane) 50 MG tablet Take 50 mg by mouth 3 times daily. 3 Active doxycycline (Monodox) 100 MG capsule TAKE 1 CAPSULE BY MOUTH TWICE A DAY MAY TAKE WITH FOOD TO AVOID STOMACH UPSET 3 Active Cosopt PF 2-0.5 % solution INSTILL 1 DROP INTO BOTH EYES 3 TIMES A DAY DIRECTED 3 Active Alphagan P 0.1 % ophthalmic solution INSTILL 1 DROP INTO BOTH EYES 3 TIMES A DAY DIRECTED 3 Active Active Problems Problem Noted Date Diagnosed Date Primary open angle glaucoma (POAG) of both eyes 07/05/2022 Central retinal vein occlusi on with macular edema of left eye 07/05/2022 Impaired contrast sensitivity 07/05/2022 Presbyopia of both eyes 07/05/2022 Social History Tobacco Use Types Packs/Day Years Used Date Smoking Tobacco: Never Tobacco Cessation:Counseling Given: Not Answered Comments Unknown Sex and Gender Information Value Date Recorded Sex Assigned at Female 06/17/2022 3:17 PM EDT Legal Sex Female 2:42 PM EDT Gender Identity Female 06/17/2022 3:17 PM EDT Sexual Orientation Don't know 06/17/2022 3: 17 PM EDT Plan of Treatment Health Maintenance Due Date Last Done Comments Depression Screening 1950 Lipid Panel 1950 SDOH Screening 1950 Alcohol/Substance Use Screening 1961 Tobacco Screening 1961 Hepatitis C Screening 1967 DTaP/Tdap/Td Vaccines (1 - Tdap) 01/04/1968 RSV Patients and Patients Aged 60 years or older (1 - 1-dose 75+ series) 01/04/2024 COVID-19 Vaccine ( season) 2024 12/02/2021, 06/14/2021, 12/28/2020, Additional history exists Influenza Vaccine (#1) 2024 2, 11/30/2020, 12/03/2019, Additional history exists Zoster Vaccines Completed 11/19/2018, 09/2018, 09/22/2011 Pneumococcal Vaccine: 50+ Years Completed 09/24/2021, 09/24/2021, 12/11/2015, Additional history exists HIB Vaccines Aged Out No longer eligi [...] patient's age to complete this topic Meningococcal Vaccine Aged Out No denny sergey eligible based on patient's age to complete this topic RSV under 20 months Aged Out No longe r eligible based on patient's age to complete this topic Rotavirus Vaccines Aged Out No longer eligible based on patient's age to complete this topic Insurance [place] [address] [place] [id number]
--- OUTSIDE RECORDS SUMMARY | 2025-02-14 19:27 | XMS_ITS | Encounter Summary ---
Author Organization [facility] Address [address] [facility] [address] [place] [phone] Phone Care Team Providers Care Door Trimmer Name Role Phone Rita Miranda MD Primary Care Provider + Bela London MD Unavailable [phone] Omkar Lindsay MD Unavailable Tre Dickinson MD Unavailable Raj Bruner MD Unavailable [phone] Irina Hampton MD Unavailable [phone] Markus Macdonald MD Unavailable Petty Schultz MD Unavailable [phone] Encounter Details Date Type Department Care Team (Late st Contact Info) Description 12/29/2021 Procedure Pass [facility] Echocardiography [address] [place] [address] Social History Tobacco Use Types Packs/Day Years Used Date Smoking Tobacco: Never Smokeless Tobacco: Never Alcohol Use Standard Drinks/Week Comments Not Currently 0 (1 standard drink = 0.6 oz pur e alcohol) Comments Unknown Sex and Gender Information Value [...] Description 04/01/2025 1:20 PM EST Office Visit [facility] [address] [place] [address] Viridiana Rosario MD [address] [facility] [address] [place] [address] [email or web address] 04/04/2025 11:50 AM EST [facility], [address] [place] [address] Petty Schultz MD [address] [place] [phone] [email or web address] 04/04/2025 1:00 PM EST Office Visit [facility], Division of Hematologic Oncology, [address] [place] [address] Petty Schultz MD [address] [place] [id number] [email or web address] 09/30/2025 1:30 PM EDT Blood Draw [facility], [address] [place] [address] Petty Schultz MD [address] [place] [id number] [email or web address] 09/30/2025 2:30 PM EDT Office Visit [facility], Division of Hematologic Oncology, [address] [place] [address] Petty Schultz MD [address] [place] [id number] [email or web address] documented as of this encounter Visit Diagnoses Not on filedocumented in this encounter Care Teams Door Trimmer Relationship Specialty Start Date End Date Rita Miranda MD PCP - General Internal Medicine 04/19/16 Bela London MD [address] [address] Ophthalmology 09/16/17 Omkar Lindsay MD [address] [place] [id number] Ophthalmology 09/16/17 Tre Dickinson MD [address] [place] [phone] Hematology and Oncology 12/21/21 Raj Bruner MD [address] [place] [address] Clinic, Floor [address] [place] [address] [email or web address] Hematology and Oncology 12/21/21 03/31/24 Irina Hampton MD [address] [place] [address], [place] [address] Cardiology 02/04/22 Markus Macdonald MD [address] [place] [address] [place] [address] [email or web address] 03/28/23 Petty Schultz MD [address] [place] [address] [address] [place] [address] (work) [email or web address] Hematology and Oncology 04/01/24 documented as of this encounter Additional Source Comments The information contained in this document represents components of the legal health record. It is not the complete legal health record.[facility]
--- OUTSIDE RECORDS SUMMARY | 2025-02-14 19:27 | XMS_ITS | Clinical Summary ---
Author Organization [facility] Address [address] [address] Phone Care Team Providers Care Blueprint Reproducer Name Role Phone Rita Miranda MD Primary Care Provider + Bela London MD Unavailable Omkar Lindsay MD Unavailable Tre Dickinson MD Unavailable Irina Hampton MD Unavailable [phone] Markus Macdonald MD Unavailable Petty Schultz MD Unavailable [phone] Allergies Active Allergy Reactions Criticality Noted Date Comments Bimatoprost 09/14/2017 Medications brimonidine (ALPHAGAN P) 0.1 % Drop Place 1 drop into each eye 3 (three) times a day. 04/11/2014 Active simvastatin (ZOCOR) 20 MG tablet Take 20 mg by mouth nightly at bedtime. Active COSOPT, PF, 2-0.5 % Dpet Place 1 drop into each eye 3 (three) times a day. 3 09/07/2017 Active methazolAMIDE (NEPTAZANE) 25 MG tablet 50 mg 3 (three) times a day. Eye drops 3 09/04/2017 Active cyanocobalamin (VIT B-12) 1000 MCG tablet Take 1,000 mcg by mouth 2 (two) times a week. 2 09/08/2017 Active latanoprostene bunod (VYZULTA) 0.024 % Drop Place 1 drop into each eye every evening. Active apixaban (ELIQUIS) 5 mg tablet Take 2.5 mg by mouth 2 (two) times a day. 08/13/2021 Active ascorbic acid, vitamin C, (VITAMIN C) 100 MG tablet Take 1 tablet by mouth daily. 01/11/2021 Active calcium carbonate (CALCIUM 500 ORAL) Take 500 mg by mouth daily. Active cholecalciferol (VITAMIN D3) 25 MCG (1,000 unit) tablet Take 1,000 Units by mouth daily. Active vitamins A,C,E-zinc-hilda er (PRESERVISION AREDS) 14,320-226-200 omzv-bi-itbi Cap Take 1 capsule by mouth 2 (two) times a day with meals. Active acyclovir (ZOVIRAX) 400 MG tablet Take 400 mg by mouth 2 (two) times a day. 01/04/2022 Active coenzyme Q10 100 mg capsule Take 100 mg by mouth daily. Unknown dosage. Active lenalidomide (REVLIMID) 5 mg capsule Take 5 mg by mouth daily as needed. 14 days on, 14 days off. 07/06/2022 Active atropine (ISOPTO ATROPINE) 1 % ophthalmic solution LOCATION: LEFT EYE. 1 DROP TO LEFT EYE EVERY 12 HOURS Active prednisoLONE acetate (PRED FORTE) 1 % ophthalmic suspension LOCATION: LEFT EYE. 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 She has responded exceptionally well to therapy and appears to be an unconfirmed CR/VGPR depending on presence of FAVIAN+ in urine. She understand that a BM biopsy is needed to confirm achievement of sCR and MRD can be tested at that time as well granted presence of trackable B cell ID. She is not interested in pursuing MRD testing at this time. We reviewed again the data that led to a concurrent diagnosis of AL amyloidosis. This was based on presence of scant Congo red + material on a fat pad aspirate in December 2021. It was suggested that patient had renal involvement, based on 10 g proteinuria, however this was 90% BJ proteinuria and resolved promptly with commencement of therapy. Since our initial visit, we discovered that the congo red material in the FNA was too scant to be typed. Her TTR gene testing returned negative for mutations. A skin biopsy here showed amyloid deposition that was confirmed to be AL via LC- MS. She has no obvious clinical or laboratory stigmata of AL. TTE had preserved GLS of -20. We spent most of the time today discussing what MRD is and how we gather it. We discussed this is not mandatory and is mostly used for prognostic discussion but data regarding impact on treatment is coming along. - Continue daraR until progression based on Gerard. Monitor for cytopenia. Dose of R appears adequate and would not recommend increasing it. - Would check a UPEP twice year to confirm ongoing response. - If a BM is performed, I would recommend MRD testing. - She will continue under longitudinal f/u with Dr. Macdonald. - I will see her back in 1 year. Assessment & Plan (04/01/2024 9:13 AM EST): R-ISS II, 1q+ IgAL multiple myeloma, s/p DaraCyBorD followed by Melina-RV maintenance x 3 cycles and currently on DaraR maintenance with lenalidomide 10mg days 1 - 21, daratumumab once monthly, and denosumab once monthly. She has responded exceptionally well to therapy and appears to be an unconfirmed CR/VGPR depending on presence of FAVIAN+ in urine. She understand that a BM biopsy is needed to confirm achievement of sCR and MRD can be tested at that time as well granted presence of trackable B cell ID. She is not interested in pursuing MRD testing at this time. We reviewed again the data that led to a concurrent diagnosis of AL amyloidosis. This was based on presence of scant Congo red + material on a fat pad aspirate in December 2021. It was suggested that patient had renal involvement, based on 10 g proteinuria, however this was 90% BJ proteinuria and resolved promptly with commencement of therapy. Since our initial visit, we discovered that the congo red material in the FNA was too scant to be typed. Her TTR gene testing returned negative for mutations. A skin biopsy here showed amyloid deposition that was confirmed to be AL via LC- MS. She has no obvious clinical or laboratory stigmata of AL. TTE had preserved GLS of -20. We also touched upon the possibility of ASCT. I do not see any PS limitations and comorbidities are absent. Nevertheless, patient reports lack of caregiver and this does not appear a viable path at this time. - Continue daraR until progression based on Gerard. Monitor for cytopenia. Dose of R appears adequate and would not recommend increasing it. - Would check a UPEP twice year to confirm ongoing response. - If a BM is performed, I would recommend MRD testing. - She will continue under longitudinal f/u with Dr. Macdonald. - I will reach out with results and otherwise see her back in 6 months. Assessment & Plan (10/03/2023 3:06 PM EDT): R-ISS II, 1q+ IgAL multiple myeloma, s/p DaraCyBorD followed by Melina-RV maintenance x 3 cycles and currently on DaraR maintenance with lenalidomide 10mg days 1 - 21, daratumumab once monthly, and denosumab once monthly. She has responded exceptionally well to therapy and appears to be an unconfirmed CR/VGPR depending on presence of FAVIAN+ in urine. She understand that a BM biopsy is needed to confirm achievement of sCR and MRD can be tested at that time as well granted presence of trackable B cell ID. We reviewed again the data that led to a concurrent diagnosis of AL amyloidosis. This was based on presence of scant Congo red + material on a fat pad aspirate in December 2021. It was suggested that patient had renal involvement, based on 10 g proteinuria, however this was 90% BJ proteinuria and resolved promptly with commencement of therapy. Since our initial visit, we discovered that the congo red material in the FNA was too scant to be typed. Her TTR gene testing returned negative for mutations. A skin biopsy here showed amyloid deposition that was confirmed to be AL via LC- MS. She has no obvious clinical or laboratory stigmata of AL. TTE had preserved GLS of -20. She is booked for a skin biopsy to attempt type the amyloid. We reviewed rationale for this. We also touched upon the possibility of ASCT. I do not see any PS limitations and comorbidities are absent. Nevertheless, patient reports lack of caregiver and this does not appear a viable path at this time. - Continue daraR until progression based on Gerard. Monitor for cytopenia. - Would check a UPEP twice year to confirm ongoing response. - Would consider a BM biopsy with MRD testing in the near future if U FAVIAN is negative to assess for sCR and MRD testing. - She will continue under longitudinal f/u with Dr. Macdonald. - I will reach out with results and otherwise see her back in 6 months. Assessment & Plan (03/28/2023 5:33 PM EST): R-ISS II, 1q+ IgAL multiple myeloma, s/p DaraCyBorD followed by Melina-RV maintenance x 3 cycles and currently on DaraR maintenance with lenalidomide 10mg days 1 - 21, daratumumab once monthly, and denosumab once monthly. She has responded exceptionally well to therapy and appears to be an unconfirmed CR/VGPR depending on presence of FAVIAN+ in urine. She understand that a BM biopsy is needed to confirm achievement of sCR and MRD can be tested at that time as well granted presence of trackable B cell ID. We reviewed again the data that led to a concurrent diagnosis of AL amyloidosis. This was based on presence of scant Congo red + material on a fat pad aspirate in December 2021. It was suggested that patient had renal involvement, based on 10 g proteinuria, however this was 90% BJ proteinuria and resolved promptly with commencement of therapy. Since our initial visit, we discovered that the congo red material in the FNA was too scant to be typed. Her TTR gene testing returned negative for mutations. She is booked for a skin biopsy to attempt type the amyloid. We reviewed rationale for this. We also touched upon the possibility of ASCT. I do not see any PS limitations and comorbidities are absent. Nevertheless, patient reports lack of caregiver and this does not appear a viable path at this time. - Continue daraR until progression based on Gerard. Monitor for cytopenia. - Would check a UPEP twice year to confirm ongoing response. - Would consider a BM biopsy with MRD testing in the near future if U FAVIAN is negative to assess for sCR and MRD testing. - She will continue under longitudinal f/u with Dr. Macdonald. - I will reach out with results and otherwise see her back in 6 months. Assessment & Plan (12/27/2022 5:59 PM EDT): Ms. Max is a 72 year old woman diagnosed with R-ISS II, 1q+ IgAL multiple myeloma, s/p DaraCyBorD followed by Melina-RV maintenance x 3 cycles and currently on DaraR maintenance with lenalidomide 10mg days 1 - 21, daratumumab once monthly, and denosumab once monthly. She is here for a second opinion of a presumed diagnosis of overlapping AL amyloidosis. She has responded exceptionally well to therapy and appears to be an unconfirmed CR/VGPR depending on presence of FAVIAN+ in urine. She understand that a BM biopsy is needed to confirm achievement of sCR and MRD can be tested at that time as well granted presence of trackable B cell ID. We spent most of our time today reviewing the data that led to a concurrent diagnosis of AL amyloidosis. This was based on presence of scant Congo red + material on a fat pad aspirate in December 2021. It was suggested that patient had renal involvement, based on 10 g proteinuria. I discussed at length that the vast majority of the proteinuria was consistent of BJ protein, in keeping with her diagnosis of MM. This is not consistent with AL amyloidosis involvement of glomeruli where proteinuria is largely composed of albumin. Of note, with commencement of cytoreductive treatment, her proteinuria has promptly abated, again c/w BJ but not renal amyloidosis. She has otherwise no symptomatology or laboratory finding suggestive of amyloidosis. In particular, TTE, cardiac MRI and cardiac biomarkers have been negative. Of note, the scant amyloid in the fat tissue was not typed. Given patient age and race (), one has to exclude the possibility of this amyloid deposition being claim service representative of either WT or V122I vATTR. I have sent out TTR gene sequencing and will try to retrieve the aspirate block to submit it to the [facility] for LC-MS. We also touched upon the possibility of ASCT. I do not see any PS limitations and comorbidities are absent. Nevertheless, patient reports lack of caregiver and this does not appear a viable path at this time. We will proceed as follows: - retrieve fat aspirate block for LC-MS - f/u on TTR gene sequencing. If mutation is present, she would be considered an asymptomatic carrier. Consideration for PYP scan should be taken. This will have ramification for first degree relatives as well. - Continue daraR until progression based on Gerard. Note cytopenia today with ANC less than 1000. She is unlikely to be able to start treatment tomorrow. Would recommend G-CSF and defer treatment for 1 week if ANC is less than 1000 at the start of cycle. She may ultimately require dose reduction. - Would check a UPEP twice year to confirm ongoing response. - Would consider a BM biopsy with MRD testing in the near future if U FAVIAN is negative to assess for sCR and MRD testing. - Would consider ASCT if a caregiver is available. - She will continue under longitudinal f/u with Dr. Macdonald. - I will see her back once these tests are resulted. Proteinuria 11/16/2021 Deep vein thrombosis 08/13/2021 Hyperlipidemia 04/27/2021 Hyperparathyroidism 04/27/2021 Hypertension 04/25/2019 Glaucoma 01/26/2015 Encounters Date Type Department Care Team Description 01/28/2025 Telephone [facility] [address] [place] [id number] Viridiana Rosario MD [place]/ scheduling coordination from Last 3 Months Immunizations Immunization Administration Dates Next Due COVID-19 (Pre-12/26) Moderna Vaccine, Bivalent 6mo+ 12/02/2021 INFLUENZA, SPLIT VIRUS, TRIV ALENT W/ PRESERVATIVE IM 12/01/2021,11/28/2013,12/16/2012 Influenza High-Dose Quadriva lent Preservative Free IM 12/03/2019 Influenza High-Dose Trivalen t Preservative Free IM 11/29/2016 Influenza Quadrivalent Adjuv anted Preservative Free IM 12/01/2021,11/30/2020 Influenza Trivalent Adjuvant ed Preservative free IM 11/15/2018,12/25/2017 Influenza, Unspecified Formulation 11/29/2016, Influenza, whole 12/03/2019 Pneumococcal conjugate PCV13 12/11/2015 Pneumococcal conjugate PCV20 09/24/2021 Pneumococcal polysaccharide PPSV23 01/10/2014 Zoster live 09/22/2011 Zoster recombinant 11/19/2018, 9,11/19/2018,08/10,08/10/2018 Family History Medical History Relation Comments Hypertension Brother Kidney failure Brother Glaucoma Father Glaucoma Heart disease Father Heart disease Mother Leukemia Mother Glaucoma Paternal Grandmother Glaucoma Relation Status Comments Brother Father Mother Paternal Grandmother Social History Tobacco Use Types Packs/Day Years Used Date Smoking Tobacco: Never Smokeless Tobacco: Never Tobacco Cessation:Counseling Given: Not Answered Alcohol Use Standard Drinks/Week Comments Not Currently [...] Orientation Straight 02/03/2022 10 :41 AM EST Last Filed Vital Signs Vital Sign Reading Time Taken Comments Blood Pressure 117/59 10/01/2024 1:54 PM EDT Pulse 68 10/01/2024 1:54 PM EDT Temperature 36.8 C (98.2 F) 10/01/2024 1:54 PM EDT Respiratory Rate 16 10/01/2024 1:54 PM EDT Oxygen Saturation 100% 10/01/2024 1:54 PM EDT Inhaled Oxygen Concentration - - Weight 64.4 kg (141 lb 15.6 oz) 10/01/2024 1:54 PM EDT Height 161.5 cm (5' 3.58 ) 10/01/2024 1:54 PM ED T Body Mass Index 24.69 10/01/2024 1:54 PM EDT Plan of Treatment Upcoming Encounters Date Type Department Care Team (Late st Contact Info) Description 04/01/2025 1:20 PM EST Office Visit [facility] [address] [place] [address] Viridiana Rosario MD [address] [facility] [address] [place] [address] [email or web address] 04/04/2025 11:50 AM EST [facility], [address] [place] [address] Petty Schultz MD [address] [place] [phone] [email or web address] 04/04/2025 1:00 PM EST Office Visit [facility], Division of Hematologic Oncology, [address] [place] [address] Petty Schultz MD [address] [place] [phone] [email or web address] 09/30/2025 1:30 PM EDT [facility], [address], [address] [place] [address] Petty Schultz MD [address] [place] [phone] [email or web address] 09/30/2025 2:30 PM EDT Office Visit [facility], Division of Hematologic Oncology, [facility] [address] [place] [address], [address] [place] [address] Petty Schultz MD [address] [place] [phone] [email or web address] Health Maintenance Due Date Last Done Comments Adult Td,Tdap Booster 1950 LIPID PANEL 1950 DEPRESSION SCREENING 1961 HEPATITIS C SCREENING 1967 OSTEOPOROSIS SCREENING INITIAL (ONE-TIME) 2014 INFLUENZA VACCINE (#1) 2024 , 12/14/2022, 12/01/2021, Additional history exists COVID-19 VACCINE ( season) 2024 11/24/2023, 01/17/2023, 12/02/2021, Additional history exists BLOOD PRESSURE 04/03/2025 10/01/2024 CREATININE LEVEL 10/01/2025 10/01/2024, , 09/26/2023, Additional history exists ZOSTER VACCINES Completed 11/19/2018, 11/04, 11/19/2018, Additional history exists PNEUMOCOCCAL VACCINES (50+ years) Completed 09/24/2021, 12/11/2015, 01/10/2014 RSV VACCINE Completed 01/15/2024 SMOKING STATUS SCREENING (Once After 26 Yrs) Completed 03/26/2024 HEPATITIS A VACCINES Aged Out No long er eligible based on patient's age to complete this topic HIB VACCINES Aged Out No longer eligi ble based on patient's age to complete this topic MENINGOCOCCAL VACCINES (ACWY) Aged Out No longer eligible based on patient's age to complete this topic MENINGOCOCCAL VACCINES (B) Aged Out N o longer eligible based on patient's age to complete this topic Medical Devices Not on file Procedures Procedure Name Priority Date/Time Associated Diagnosis Comments COMPREHENSIVE METABOLIC PANEL (CMP) Routine 10/01/2024 1:24 PM EDT Multiple myeloma in remission from Last 3 Months or Most Recently Relevant to Health Maintenance Results * (ABNORMAL) Comprehensive metabolic panel (10/01/2024 1:24 PM EDT) SODIUM 141 136 - 145 mmol/L [facility] LIC# [id number] POTASSIUM 3.7 3.4 - 5.1 mmol/L [facility] LIC# [id number] CHLORIDE 104 98 - 107 mmol/L [facility] LIC# [id number] CO2 24 22 - 31 mmol/L [facility] LIC# [id number] BUN 32(H) 6 - 23 mg/dL [facility] LIC# [id number] CREATININE 0.92 0.50 - 1.20 mg/dL [facility] LIC# [id number] GLUCOSE 80 70 - 100 mg/dL [facility] LIC# [id number] ALBUMIN 4.1 3.5 - 5.2 g/dL [facility] LIC# [id number] TOTAL PROTEIN 6.4 6.4 - 8.3 g/dL [facility] LIC# [id number] CALCIUM 10.2 8.8 - 10.7 mg/dL [facility] LIC# [id number] ALKALINE PHOSPHATASE 68 35 - 104 U/L [facility] LIC# [id number] TOTAL BILIRUBIN 0.4 0.2 - 1.2 mg/dL [facility] LIC# [id number] AST 15 <33 U/L [facility] LIC# [id number] ALT <5 <34 U/L [facility] LIC# [id number] GLOBULIN 2.3 2.3 - 4.2 g/dL [facility] LIC# [id number] EGFR 65 >59 mL/min/1.7 3m2 [facility] LIC# [id number] Comment:Estimated glomerular filtration rate calculated using the CKD-EPI refit equation. ANION GAP 13 7 - 17 mmol/L [facility] LIC# [id number] Blood 10/01/2024 1:24 PM EDT 10/01/2024 1:49 PM EDT us Petty Schultz MD LAB BLOOD BKR ORDERABLES Final Result [facility] LIC# [id number] [address] [place] [address] from Last 3 Months or Most Recently Relevant to Health Maintenance Insurance MEDICARE PART A & B [employer] SUPPLEMENT MEDICARE PART A & [facility] EXTENSION MEDICARE SUPPLEMENT MEDICARE PART A & B [facility] [employer] MEDICARE SUPPLEMENT MEDICARE PART A & [place] [address] [address] [place] [address] [employer] MEDICARE SUPPLEMENT MEDICARE PART A & B MEDICARE SUPPLEMENT MEDICARE PART A & B [employer] MEDICARE SUPPLEMENT MEDICARE PART A & B [employer] MED[employer]ARE SUPPLEMENT MEDICARE PART A & B [employer] MEDICARE SUPPLEMENT MEDICARE PART A & [place] [phone] MEDICARE PART A & B [facility] [employer] MEDICARE SUPPLEMENT Care Teams Blueprint Reproducer Relationship Specialty Start Date End Date Rita Miranda MD PCP - General Internal Medicine 04/19/16 Bela London MD [address] [address] Ophthalmology 09/16/17 Omkar Lindsay MD [address] [address] Ophthalmology 09/16/17 Tre Dickinson MD [address] [place] [phone] Hematology and Oncology 12/21/21 Irina Hampton MD [address] [place] [address], [place] [address] Cardiology 02/04/22 Markus Macdonald MD [address] [place] [address] [place]ematology [place] [address] [email or web address] 03/28/23 Petty Schultz MD [address] [place] [phone] [email or web address] Hematology and Oncology 04/01/24 Additional Source Comments The information contained in this document represents components of the legal health record. It is not the complete legal health record.[facility]
--- OUTSIDE RECORDS SUMMARY | 2025-02-14 19:27 | XMS_ITS | Data Portability ---
Author Organization [facility], [address] Address [address] [place] [address] Assessment No assessment recorded. Plan of Treatment Reminders Order Date Submit Date Provider Last Modified By Organization Details Last Modified Time Details Appointments None recorded. Lab SARS CoV 2 (COVID-19) Ag, QL, IA, upper respiratory specimen 2023 024 [email or web address] [address]993[facility] [address], [address] [place], [address], 4 14:29:19 SARS CoV 2 (COVID-19) Ag, QL, IA, upper respiratory specimen 2023 024 [email or web address] _[facility] [address], [address] [place], [address], 4 13:18:35 Referral None recorded. Procedures None recorded. Surgeries None recorded. Imaging None recorded. Medication Orders albuterol sulfate HFA 90 mcg/actuati on aerosol inhaler 2023 024 [facility] #[id number], [phone] [place], [address], 4 13:18:36 Allergy Relief (fluticason e) 50 mcg/actuati on nasal spray,suspe nsion 2023 024 [facility] #1130, [phone] [place], [address], 4 13:18:35 prednisone 20 mg tablet 2023 024 [facility] #1130, [phone] [place], [address], 13:18:36 benzonatate 200 mg capsule 2023 024 [facility] #1130, [phone] [place], [address], 13:18:36 Patient TargetsNo targets recorded. Patient Instructions Encounter Date Encounter Id Patient Instructions Last Modified By Organization Details Last Modified Time 07/10/2023 [id number] 9 things to do i f you've been exposed to covid-19 Not available 07/10/2023 13:18:32 bronchitis: care instructions Not available 07/10/2023 13:18:32 Reason for Referral None Reported. Results Created Date Observation Date Name Description Value Unit Range Abnormal Flag Note LastModifiedBy Organization Detail LastModifiedTime 07/10/19 24 07/10/2023 SARS CoV 2 (COVI D-19) Ag, QL, IA, upper respi rator y speci men Unknown Analyte negati ve Not Available [address] [place], [address], 07/10/2023 12:48:55 07/10/19 24 07/10/2023 SARS CoV 2 (COVI D-19) Ag, QL, IA, upper respi rator y speci men Unknown Analyte yes Not Available [address] [place], [address], 07/10/2023 12:48:55 11/11/19 24 11/11/2023 SARS CoV 2 (COVI D-19) Ag, QL, IA, upper respi rator y speci men Unknown Analyte negati ve Not Available [address] [place], [address], 11/11/2023 13:19:47 11/11/19 24 11/11/2023 SARS CoV 2 (COVI D-19) Ag, QL, IA, upper respi rator y speci men Unknown Analyte yes Not Available [id number] [place], [address], 11/11/2023 13:19:47 Result Notes None recorded. 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 Medical Equipment None Reported. Allergies No known drug allergies Medications Name Sig Start Date Stop Date Status Note LastModified by Organization Details LastModified Time benzonatate 200 mg capsule TAKE 1 CAPSULE 3 TIMES A DAY BY ORAL ROUTE NEEDED FOR 7 DAYS, FOR COUGH. active Not Available Not Available No t Available prochlorper azine maleate 5 mg tablet TAKE 1 TABLET BY MOUTH 3 TIMES A DAY NEEDED FOR NAUSEA/VO MITING active Not Available Not Available No t Available prednisone 20 mg tablet TAKE 2 TABLETS EVERY DAY BY ORAL ROUTE IN THE MORNING FOR 4 DAYS, FOR INFLAMMAT ION. active Not Available Not Available No t Available simvastatin 10 mg tablet TAKE 1 TABLET BY MOUTH EVERYDAY AT BEDTIME active Not Available Not Available No t Available cyanocobala min (vit B-12) 1,000 mcg tablet TAKE 1 TABLET BY MOUTH TWICE PER WEEK active Not Available Not Available No t Available methazolami de 50 mg tablet TAKE 1 TABLET BY MOUTH THREE TIMES A DAY active Not Available Not Available No t Available acyclovir 400 mg tablet TAKE 1 TABLET BY MOUTH TWICE A DAY FOR 30 DAYS active Not Available Not Available No t Available sulfamethox azole 800 mg-trimetho prim 160 mg tablet TAKE 1 TABLET BY MOUTH EVERY MONDAY, MONDAY , AND 07/09 completed Not Available Not Available Not Available prednisolon e acetate 1 % eye drops,suspe nsion LOCATION: LEFT EYE. 1 DROP TO LEFT EYE 4 TIMES PER DAY active Not Available Not Available No t Available doxycycline monohydrate 100 mg capsule TAKE 1 CAPSULE BY MOUTH TWICE A DAY MAY TAKE WITH FOOD TO AVOID STOMACH UPSET 07/09 completed Not Available Not Available Not Available simvastatin 20 mg tablet TAKE 1 TABLET BY MOUTH EVERYDAY AT BEDTIME active Not Available Not Available No t Available nitroglycer in 0.4 mg sublingual tablet PLEASE SEE ATTACHED FOR DETAILED DIRECTION S active Not Available Not Available No t Available furosemide 20 mg tablet TAKE 1 TABLET BY MOUTH EVERY DAY active Not Available Not Available No t Available metoprolol succinate ER 25 mg tablet,exte nded release 24 hr TAKE 1 TABLET BY MOUTH EVERY DAY 07/09 completed Not Available Not Available Not Available albuterol sulfate HFA 90 mcg/actuati on aerosol inhaler INHALE 2 PUFFS EVERY 4 HOURS BY INHALATIO N ROUTE NEEDED FOR 10 DAYS, FOR WHEEZING, COUGH. active Not Available Not Available No t Available atropine 1 % eye drops LOCATION: LEFT EYE. 1 DROP TO LEFT EYE EVERY 12 HOURS active Not Available Not Available No t Available fluticasone propionate 50 mcg/actuati on nasal spray,suspe nsion USE 1 SPRAY IN EACH NOSTRIL DIRECTED FOR NASAL CONGESTIO N active Not Available Not Available No t Available Alphagan P 0.1 % eye drops INSTILL 1 DROP INTO BOTH EYES 3 TIMES A DAY DIRECTED active Not Available Not Available No t Available lenalidomid e 15 mg capsule TAKE 1 CAPSULE BY MOUTH ONCE DAILY FOR 21 DAYS WITH 1 WEEK OFF active Not Available Not Available No t Available lenalidomid e 5 mg capsule TAKE 1 CAPSULE BY MOUTH DAILY FOR 14 DAYS FOLLOWED BY 14 DAYS OFF active Not Available Not Available No t Available Revlimid 10 mg capsule TAKE 1 CAPSULE BY MOUTH DAILY FOR 14 DAYS FOLLOWED BY 14 DAYS OFF active Not Available Not Available No t Available diflupredna te 0.05 % eye drops PLACE 2 DROPS INTO LEFT EYE TWICE A DAY active Not Available Not Available No t Available Cosopt (PF) 2 %-0.5 % eye drops in a dropperette INSTILL 1 DROP INTO BOTH EYES 3 TIMES A DAY DIRECTED active Not Available Not Available No t Available Eliquis 5 mg tablet TAKE 1 TABLET BY MOUTH TWICE A DAY active Not Available Not Available No t Available Vyzulta 0.024 % eye drops INSTILL 1 DROP INTO BOTH EYES AT BEDTIME DIRECTED active Not Available Not Available No t Available Paxlovid 300 mg (150 mg x 2)-100 mg tablets in a dose pack TAKE 2 TABS OF NIRMATREL VIR & 1 TAB OF RITONAVIR BY MOUTH TWICE DAILY X5 DAYS PER PACKAGE DIRECTION . 07/09 completed Not Available Not Available Not Available Vitals Date Recorded Body height Body mass index (BMI) Body weight Respiratory rate Body temperature Oxygen saturation Heart rate Systolic And Diastolic Provider Name and Address Organization Details Last Updated DateTime 4 162.56 cm 26.4 kg/m2 83565.2 2 g 16 /min 96.7 [degF] 98 % 100 /min 107/64 mm[Hg] Donna GRECO - [facility] 4 12:46:52 Date Recorded Body height Body mass index (BMI) Body weight Oxygen saturation Heart rate Respiratory rate Body temperature Systolic And Diastolic Provider Name and Address Organization Details Last Updated DateTime 4 162.56 cm 23.7 kg/m2 85297.7 5 g 98 % 75 /min 18 /min 98.6 [degF] 121/76 mm[Hg] Cassie GRECO - [facility] 4 13:19:53 Social History Question Answer Notes LastModified by Organizat ion Details LastModified Time Tobacco Smoking Status Never Smoker Donna sol PA - [facility] 07/10/2023 12:45:31 Have You Had A Flu Shot This Season? Yes Information not available 07/10/2023 What Was The Date Of Your Most Recent Tobacco Screening? 11/11/2023 [email or web address] Information not available 11/11/2023 Have You Recently Traveled Abroad? No [email or web address] Information not available 11/11/2023 Sex: Unknown Functional Status Question Answer Note LastModified by Organization D etails LastModified Time Do you or have you ever used any other forms of tobacco or nicotine? No Information not available 07/10/2023 What is your level of alcohol consumption? None Information not available 07/10/2023 Mental Status None recorded. Family History Nothing Reported. Medical History No medical history recorded. Gynecological History Statement/Question Response Is there any chance of ? No Obstetrics History GPAL:G 0 P 0 0 0 0 Immunizations Vaccine Type Date Status Note Provider Nam e and Address Organization Details Recorded Time Influenza, adjuvanted, trivalent, PF 9 completed Donna Adelaida null, PA - [facility] 07/10/2023 12:44:57 Influenza, adjuvanted, trivalent, PF 8 completed Donna Adelaida null, PA - [facility] 07/10/2023 12:44:57 zoster recombinant 9 completed Donna Adelaida null, PA - [facility] 07/10/2023 12:44:57 zoster recombinant 9 completed Donna Adelaida null, PA - [facility] 07/10/2023 12:44:57 Influenza, high-dose, quadrivalent, PF 0 completed Donna Adelaida null, PA - [facility] 07/10/2023 12:44:58 Influenza, adjuvanted, quadrivalent, PF 1 completed Donna Adelaida null, PA - [facility] 07/10/2023 12:44:58 Influenza, adjuvanted, quadrivalent, PF 2 completed Donna Adelaida null, PA - [facility] 07/10/2023 12:44:58 Influenza, adjuvanted, quadrivalent, PF 3 completed Donna Adelaida null, PA - [facility] 07/10/2023 12:44:58 COVID-19, mRNA, LNP-S, PF, 100 mcg/0.5mL dose or 50 mcg/0.25mL dose 1 completed Donna Adelaida null, PA - [facility] 07/10/2023 12:44:58 COVID-19, mRNA, LNP-S, PF, 100 mcg/0.5mL dose or 50 mcg/0.25mL dose 1 completed Donna Son null, PA - [facility] 07/10/2023 12:44:58 COVID-19, mRNA, LNP-S, PF, 100 mcg/0.5mL dose or 50 mcg/0.25mL dose 2 completed Donna Son null, PA - [facility] 07/10/2023 12:44:58 COVID-19, mRNA, LNP-S, PF, 100 mcg/0.5mL dose or 50 mcg/0.25mL dose 1 completed Donna Son null, PA - [facility] 07/10/2023 12:44:58 Pneumococcal conjugate PCV20, polysaccharide [id number] conjugate, adjuvant, PF 2 completed Donna Son null, PA - [facility] 07/10/2023 12:44:58 COVID-19, mRNA, LNP-S, bivalent, PF, 50 mcg/0.5 mL or 25mcg/0.25 mL dose 2 completed Donna Son null, PA - [facility] 07/10/2023 12:44:58 COVID-19, mRNA, LNP-S, PF, 50 mcg/0.5 mL 3 completed Donna Son null, PA - [facility] 07/10/2023 12:44:58 Influenza, high-dose, trivalent, PF 7 completed Donna Son null, PA - [facility] 07/10/2023 12:44:58 Past Encounters Encounter ID Performer Location Encounter Start Date Encounter Closed Date Diagnosis/Indication Diagnosis SNOMED-CT Code Diagnosis ICD10 Code Diagnosis IMO Codes Diagnosis Note [id number] [address] [place] [address] 02/12/2020 10:56:17 02/12/2020 12:01:30 [id number] [address] [place] [address] 12/02/2020 11:40:10 12/02/2020 13:56:34 [id number] [address] [place] [address] 09/04/2021 18:01:19 09/04/2021 18:49:38 [id number] 09007_[address] [place] [address] 10/13/2021 12:02:24 10/13/2021 13:52:37 [id number] ANGUS MOSS [address] [place] [address] 07/10/2023 12:37:48 07/10/2023 13:31:57 Exposure to SARS-CoV-2 573447975 Z20.822 You have presented for a COVID Test - your Rapid COVID test was NEGATIVE. If a COVID PCR Test was collected and sent to the [facility], then we will notify you of these results once they are received. In the meantime, you should be cautious being around others. If you are having cold like symptoms, I recommend the following to help with your symptoms: 1. Take Ibuprofen or Tylenol if you do not have any allergies to these medication s. If you take a blood thinner you should not take NSAIDS like Ibuprofen. These medication will help with the inflammati on in your respirator y tract which should help the cough.2. I suggest taking a Antihistam ine (loratadin e or cetirizine or Janey or benadryl) - to help with the congestion . I would advise this over a decongesta nt.3. Saline Nasal Spray4. Salt Water Gargles. I would be seen again immediatel y in the Emergency Room if you develop:1. Shortness of Breath2. Chest Pain3. Fever > 101.04. Lethargy or Confusion. Below is the current CDC guidelines .Updated CDC Guidelines for Quarantine and Testing- 03/13/2021 If You Test Positive for COVID-19 (Isolate) Everyone, regardless of vaccinatio n status.1. Stay home for 5 days.2. If you have no symptoms or your symptoms are resolving after 5 days, you can leave your house.3. Continue to wear a mask around others for 5 additional days. If you have a fever or feel worse, continue to stay home until your fever resolves._ I f You Were Exposed to Someone with COVID-19 (Quarantin e) If you:Have been boosted OR Completed the primary series of Pfizer or Moderna vaccine within the last 6 months.ORC ompleted the primary series of J&J vaccine within the last 2 months1. Wear a mask around others for 10 days.2. Test on day 5, if possible.3 . If you develop symptoms get a test and stay home. If you:Comple iris the primary series of Pfizer or Moderna vaccine over 6 months ago and are not boostedORC ompleted the primary series of J&J over 2 months ago and are not boostedORA re un-vaccina ted1. Stay home for 5 days. After that continue to wear a mask around others for 5 additional days.2. Test on day 5, if possible.I f you develop symptoms get a test and stay home Quarantine Calculatio n:Day 0: is the first day of symptoms or a positive viral test.Day 1: is the first full day after your symptoms developed or when your test specimen was collected. Exposure:D ay 1: is the first full day after your last known contact with a person that tested positive for COVID 19. [facility] Thank you for visiting [facility] today, please feel free to call our office you have any questions or concerns. Acute bronchitis 9578557 2 J20.9 Acute bronchitis is a common clinical condition characteri zed by an acute onset but persistent cough, with or without sputum production . It is typically self-limit ed, resolving within one to three weeks. Symptoms result from inflammati on of the lower respirator y tract and are most frequently due to viral infection. Treatment is focused on patient education and supportive care. Antibiotic s are not needed for the great majority of patients with acute bronchitis but are greatly overused for this condition. Reducing antibiotic use for acute bronchitis is a national and internatio nal health care priority. In most patients, the cough persists for 1 to 3 weeks, with a average duration of 18 days. The cough may be associated with either purulent or nonpurulen t sputum production The presence of purulent sputum is a nonspecifi c finding and does not appear to be predictive of bacterial infection or that antibiotic s are needed. For the great majority of patients, use of antibiotic s does not hasten recovery or prevent complicati ons but puts patients at increased risk of adverse effects including potentiall y severe complicati ons such as Clostridio ides difficile infection and anaphylaxi s. Non-Pharma cological treatment for coughin . Throat lozenges2. Hot tea3. Honey4. Smoking cessation5 . Avoidance of second hand smoke. Pharmacolo gical Treatment: 1. Robitussin or guafenesin 2. Antihistam ines3. dextrometh orphan I would plan on being seen again if any of the following symptoms develop:1. Fever (100.5)2. Shortness of breath3. Wheezing4. Worsening Cough. I would go to the ER if you develop:1. Severe Shortness of breath2. Chest Pain3. Wheezing4. Coughing up Blood [id number] [place]SA [place]BETTER [place] [address] [facility] [address] [place] [address] 11/11/2023 13:09:23 11/11/2023 14:34:12 Respiratory tract congestion 091572486 R09.89 Black Elderberry Syrup:1-2 tsp 2-3 times a day for 5 days as needed for coughing.S ambucol Black Elderberry Original Syrup (available at [employer] )[employer]annah [employer] Black Elderberry Syrup, 5.4-Ounce Bottle (available at [employer] or [employer]) Use a cool mist humidifier in the room that you sleep to add moisture to the air, which should soothe the airways and help loosen any mucus that may be present. Health Concerns Section Related Observation LastModified by Organization Detai ls LastModified Time None Recorded Concern Status LastModified by Organization Details LastModified Time None Recorded Advance Directives Directive None Recorded Payers Insurance Date Sequence Insurance Name Policy Number Policy Hamm Covered Member ID Hamm Member ID Guarantor Name 05/04/2024 1 [place]ICARE [place]: [employer] Roxana Max [id number] 1 Roxana Max 05/04/2024 2 [facility] INDEMNITY PLAN (INDEMNITY) [id number] 2 Roxana Max [id number] Roxana Max Notes Date Note Type Note Provider Name and Address Organization Details Recorded Time 07/10/19 24 text/ht ml CoughReported by PatientHPIFor quality, patient reportsharshanddrybut reportsintermittentandsymptoms worse with lying down. For severity, patient reportsworseningandpain with coughbut reportsmoderate. For timing, patient reportsworseningbut reportsgradual. For context, patient reportshistory of bronchitisbut reportspatient denies vapingandnon-smoker. For associated symptoms, patient reportshurts to breathbut reportsno fever,no chills,no chest pain,no heartburn,no nausea,no vomiting,no edema,no agitation,no wheezing, andno post nasal drip. For source of patient information, patient reportsinformation obtained from patient,patient arrived at urgent care ambulatory, andlearning styles: auditory. For duration, patient reportsconstantandsymptoms lasting over 2 weeks. For modifying factors, patient reportsat night. Amos Dennison NP [address] [place], [address], [facility] 07/13/2023 09:00:38 11/11/19 24 text/ht ml 73 yo female c/o chest congestion and fatigue x 3 days. no known exposures. Afebrile. No n/v/d/r/loss of taste or smell. MELISSA LEDBETTER MD [address] [place], [address], PA - [facility] 11/11/2023 14:31:44 OBGyn Episode No OBEpisode recorded.
--- OUTSIDE RECORDS SUMMARY | 2025-02-14 19:27 | XMS_ITS | Encounter Summary ---
Author Organization [facility] Address [address] [facility] [address] [place] [address] Phone Care Team Providers Care Mandarin Tutor Name Role Phone Rita Miranda MD Primary Care Provider + Bela London MD Unavailable [phone] Omkar Lindsay MD Unavailable Tre Dickinson MD Unavailable Raj Bruner MD Unavailable [phone] Irina Hampton MD Unavailable [phone] Markus Macdonald MD Unavailable Petty Schultz MD Unavailable [phone] Encounter Details Date Type Department Care Team (Late st Contact Info) Description 11/22/2022 Procedure Pass [facility] Echocardiography [address] [place] [address] Social History Tobacco Use Types Packs/Day Years [...] Description 04/01/2025 1:20 PM EST Office Visit [facility] [address] [place] [address] Viridiana Rosario MD [address] [facility] [address] [place] [address] [email or web address] 04/04/2025 11:50 AM EST Blood Draw Laboratory Services, [address], [address] [place] [address] Petty Schultz MD [address] [place] [id number] [email or web address] [facility] 04/04/2025 1:00 PM EST Office Visit [facility], Division of Hematologic Oncology, [address], [address] [place] [address] Petty Schultz MD [address] [place] [id number] [email or web address], [facility] 09/30/2025 1:30 PM EDT Blood Draw Laboratory Services, [address], [address] [place] [address] Petty Schultz MD [address] [place] [id number] [email or web address], [facility] 09/30/2025 2:30 PM EDT Office Visit [facility], Division of Hematologic Oncology, [facility] [address] [facility], [address]th [place] [address] Petty Schultz MD [address] [place] [id number] [email or web address], [facility] documented as of this encounter Visit Diagnoses Not on filedocumented in this encounter Care Teams Mandarin Tutor Relationship Specialty Start Date End Date Rita Miranda MD PCP - General Internal Medicine 04/19/16 Bela London MD [address] [place] [address] Ophthalmology 09/16/17 Omkar Lindsay MD [address] [place] [address] Ophthalmology 09/16/17 Tre Dickinson MD [address] [place] [address] Hematology and Oncology 12/21/21 Raj Bruner MD [address] [place] [address] Myeloma Clinic, Floor [address] [place] [address] [email or web address] Hematology and Oncology 12/21/21 03/31/24 Irina Hampton MD [address] [place] [address], [place] [address] Cardiology 02/04/22 Markus Macdonald MD [address] [place] [address] [place] [address] [email or web address] 03/28/23 Petty Schultz MD [address] [place] [id number] [email or web address] Hematology and Oncology 04/01/24 documented as of this encounter Additional Source Comments The information contained in this document represents components of the legal health record. It is not the complete legal health record[facility]
== END 2025-02-14 15:07 | disposition home or self-care (01) ==
LOC: HO.HMCHD 14:03
PROVIDERS: PCP Internal Medicine; Visit Provider Internal Medicine
DX: C90.00 Multiple myeloma not having achieved remission (principal); E85.9 Amyloidosis, unspecified; I10 Essential (primary) hypertension; E05.90 Thyrotoxicosis, unspecified without thyrotoxic crisis or storm

== ENCOUNTER → 2025-02-14 14:02 | Outpatient (BNVA) | payer OTHER, SELFPAY | PROVIDERS: PCP Internal Medicine; Visit Provider Internal Medicine | DX: C90.00 Multiple myeloma not having achieved remission (principal); E85.9 Amyloidosis, unspecified; I10 Essential (primary) hypertension; E05.90 Thyrotoxicosis, unspecified without thyrotoxic crisis or storm | CPT/HCPCS: 96127 ==

== ENCOUNTER 2025-02-18 11:50 | Outpatient (REF) | payer OTHER, SELFPAY ==
[2025-02-18 14:20] LABS: Microalbum/Creatinine Ratio Ur 25.3 ug/mg cr (<30)
[2025-02-18 14:36] LABS: MANUAL DIFF FLAG NO
[2025-02-18 14:48] LABS: Hematocrit 41.6 % (37.0-47.0); Hemoglobin 13.9 g/dl (12.0-16.0); Imm Gran Abs Auto 0.02 X10*3/uL (0.00-0.03); Imm Gran Pct Auto 0.4 % (0.0-0.4); Lymphocytes Absolute Auto 1.8 X10*3/uL (1.2-4.9); Mean Corpuscular HGB Conc 33.4 g/dl (31.0-35.0); Mean Corpuscular Hemoglobin 34.2 pg (27.0-33.0); Mean Corpuscular Volume 102.2 fL (80.0-98.0); NRBC Abs Auto 0.000 X10*3/uL (0.0-0.012); NRBC Pct Auto 0.0 /100WBC (0.0-0.2); Platelet Count 182 X10*3/uL (160-400); Red Blood Count 4.07 X10*6/uL (4.20-5.50); White Blood Count 4.9 X10*3/uL (4.8-10.8)
--- OUTSIDE RECORDS SUMMARY | 2025-02-18 15:44 | XMS_ITS | Clinical Summary ---
Author Organization [facility] Address [address] [place] [address] Phone Care Team Providers Care Sausage Cooker Name Role Phone Physician, No Pcp Primary [...] Results Follow-Up Gastroenterology - 299 [place] [address] [phone] Jamie Stevenson MD 12/12/2024 12:46 PM EDT Anesthesia Event [facility] Endoscopy [address] [place] [phone] Charanjit Gandhi MD 12/12/2024 11:12 AM EDT - 12/12/2024 11:59 PM EDT Hospital Encounter [facility] Endoscopy [address] [place] [phone] Jamie Stevenson MD Dickman, Christy L, CRNA Hx of colonic polyps Discharge Disposition: Home or Self Care 12/10/2024 Telephone Gastroenterology - 299 [facility] [address] [phone] Jamie Stevenson MD from Last 3 Months Surgical History Surgery Date Site/Laterality Comments OTHER SURGICAL HISTORY 1989 PROCEDURE: HISTORICAL TOTAL HYSTERECTOMY W/O BSO HYSTERECTOMY Medical History Medical History Date Comments Personal history of multiple myeloma Amyloidosis ([facility] V24, [facility] V28) DVT (deep venous thrombosis) ([facility] V24, [facility] V28) Remi's disease Eosinophilic esophagitis Glaucoma Hyperlipidemia [...] Maintenance Results * COLONOSCOPY Anesthesia - MAC; [facility] ENDOSCOPY (12/12/2024 1:07 PM EDT) Anatomical Region Laterality Modality Endoscopy 12/12/2024 12:1 0 PM EDT Impressions 12/12/2024 1:09 PM EDT - One 4 mm polyp in the ascending colon. Biopsied. - The examination was otherwise normal on direct and retroflexion views. Recommendation: - Await pathology results. - Repeat colonoscopy in 2 years for surveillance. Narrative 12/12/2024 1:09 PM EDT [facility] GI Patient Name: Roxana Ball Procedure [...] retroflexion views. Procedure Code(s): --- Professional --- 67529, Colonoscopy, flexible; with biopsy, single or multiple Diagnosis Code(s): --- Professional --- Z86.010, Personal history of colonic polyps D12.2, Benign neoplasm of ascending colon CPT copyright 2020 [employer]. All rights reserved. The codes documented in this report are preliminary and upon executive talent acquisition consultant review may be revised to meet current compliance requirements. Jamie Stevenson MD 12/12/2024 1:09:17 PM This report has been signed electronically.Jamie Stevenson MD Number of Addenda: 0 Note Initiated On: 12/12/2024 12:10 PM Scope In: Scope Out: Endoscopy Department at [facility] - [address] [place] [phone] Procedure Note Jamie Stevenson MD - 12/12/2024 [facility] GI Patient Name: Roxana Ball Procedure [...] retroflexion views. Procedure Code(s): --- Professional --- 19240, Colonoscopy, flexible; with biopsy, singleor multiple Diagnosis Code(s): --- Professional --- Z86.010, Personal history of colonic polyps D12.2, Benign neoplasm of ascending colon CPT copyright 2020 [employer]. All rights reserved. The codes documented in this report are preliminary and upon executive talent acquisition consultant reviewmay be revised to meet current compliance requirements. Jamie Stevenson MD 12/12/2024 1:09:17 PM This report has been signed electronically.Jamie Stevenson MD Number of Addenda: 0 Note Initiated On: 12/12/2024 12:10 PM Scope In: Scope Out: Endoscopy Department at [facility] - [address] [place] [phone] IMPRESSION: - One 4 mm polyp in [...] or neoplasia identified. 12/13/2024 11:22 AM EDT [facility] at 1122 EDT Gross Description A. Large Intestine, Right/Ascend ing Colon, polyp: Labeled polyp in ascend colon . Received in formalin is a soft, billingsley-pink, thin, 0.2 cm in greatest diameter polypoid tissue which is inked shamika at the base, wrapped in paper and submitted in toto in one cassette, one piece, multiple levels. TS 12/13/2024 11:22 AM EDT [facility] Disclaimer Unless otherwise specified, all tissue is 10% NB formalin fixed and paraffin embedded. 12/13/2024 11:22 AM EDT [facility] Tissue Ascending colon structure / Unknown 12/12/2024 12:59 PM EDT 12/12/2024 1:48 PM EDT us Jamie Stevenson MD LAB PATHOLOGY ORDERABLES Fi nal Result [facility] [address] [place] [address], * MG Mammo Digital Screening w Luiz [...] for biopsy. PQRI CPT II 3342F Code 04655, 77046 PQRI 225 CPT II 7025F TISSUE DENSITY: There are scattered areas of fibroglandular density. (BI-RADS category B) IMPRESSION: Benign. BI-RADS CATEGORY: 2 - BENIGN RECOMMENDATION: Screening bilateral mammogram is recommended in 1 year. Mammo Location: [facility], [address] [place] [address] -------- FINAL REPORT -------- Dictated By: Aguila Taylor Dictated Date: 11/05/2024 10:06 ET Assigned Physician: Aguila Taylor Reviewed and Electronically Signed By: Aguila Taylor Signed Date: 11/05/2024 10:11 ET Workstation ID: [id number] Transcribed By: Self Edit Transcribed Date: 11/05/2024 10:06 ET Narrative 11/05/2024 10:11 AM EDT CLINICAL: The patient is a 74 years Female presenting for routine screening mammography. COMPARISON: Most recently 11/02/2023 and most remotely 09/15/2016. TECHNIQUE: Full-field digital mammography of the breasts bilaterally consisting of tomosynthesis in MLO and CC projection is performed in the Incipiente 2000-D unit. Computer aided detection utilizing the [...] MLO and CC projection is performed in theGoingographe 2000-D unit. Computer aided detection utilizing the [...] for biopsy. PQRI CPT II 3342F Code 39182, 59147 PQRI 225 CPT II 7025F TISSUE DENSITY: There are scattered areas of fibroglandular density.(BI-RADS category B) IMPRESSION: Benign. BI-RADS CATEGORY: 2 - BENIGN RECOMMENDATION: Screening bilateral mammogram is recommended in 1 year. Mammo Location: [facility], [facility], [address] [place] [id number] -------- FINAL REPORT -------- Dictated By: Aguila Taylor Dictated Date: 11/05/2024 10:06 ET Assigned Physician: Aguila Taylor Reviewed and Electronically Signed By: Aguila Taylor Signed Date: 11/05/2024 10:11 ET Workstation ID: [id number] Transcribed By: Self Edit Transcribed Date: 11/05/2024 10:06 ET us Self Referral Sppl IMG BI PROCEDURES Final Resul t from Last 3 Months or Most Recently Relevant to Health Maintenance Additional Health Concerns Active Problems Noted Date Diagnosed Date Autogenerated Problem 12/02/2024 Insurance MEDICARE [facility] Care Teams Sausage Cooker Relationship Specialty Start Date End Date Physician, No Pcp PCP - General 12/12/24
--- OUTSIDE RECORDS SUMMARY | 2025-02-18 15:44 | XMS_ITS | Encounter Summary ---
Author Organization [facility] Address [address] [facility] [address] [place] [address] Phone Care Team Providers Care Child Development Assistant Name Role Phone Rita Miranda MD Primary Care Provider + Bela London MD Unavailable Omkar Lindsay MD Unavailable Tre Dickinson MD Unavailable Raj Bruner MD Unavailable [phone] Irina Hampton MD Unavailable [phone] Markus Macdonald MD Unavailable Petty Schultz MD Unavailable [phone] Encounter Details Date Type Department Care Team (Late st Contact Info) Description 11/27/2023 Transcribe Orders [facility] [address] Pcp, Unknown Social History Tobacco Use Types [...] Description 04/01/2025 1:20 PM EST Office Visit [facility] Cardiovascular Clinic [address] [place] [address] Viridiana Rosario MD [address] [address] [email or web address] 04/04/2025 11:50 AM EST [facility], [address], 2nd [place] [address] Petty Schultz MD [address] [place] [address] [email or web address] 04/04/2025 1:00 PM EST Office Visit [facility], Division of Hematologic Oncology, [address], 7th [place] [address] Petty Schultz MD [address] [place] [address] [email or web address] 09/30/2025 12:30 PM EDT Office Visit [facility] Cardiovascular Clinic [address] [place] [address] Viridiana Rosario MD [address] [id number] [email or web address] 09/30/2025 1:30 PM EDT [facility], [address], 2nd [place] [address] Petty Schultz MD [address] [place] [address] [address] [place] [address] [email or web address] 09/30/2025 2:30 PM EDT Office Visit [facility], Division of Hematologic Oncology, [facility] [address] [facility], 7th [place] [address] Petty Schultz MD [address] [place] [address] [email or web address] documented as of this encounter Visit Diagnoses Not on filedocumented in this encounter Care Teams Child Development Assistant Relationship Specialty Start Date End Date Rita Miranda MD PCP - General Internal Medicine 04/19/16 Bela London MD [address] [place] [address] Ophthalmology 09/16/17 Omkar Lindsay MD [address] [place] [address] Ophthalmology 09/16/17 Tre Dickinson MD [address] [place] [address] Hematology and Oncology 12/21/21 Raj Bruner MD [address] [place] [address] Myeloma Clinic, Floor 7 [place] [address] [email or web address] Hematology and Oncology 12/21/21 03/31/24 Irina Hampton MD [address] [place] [address], [place] [address] Cardiology 02/04/22 Markus Macdonald MD [address] [place] [address] [place] [address] [email or web address] Oncology 03/28/23 Petty Schultz MD [address] [place] [address] [email or web address] Hematology and Oncology 04/01/24 documented as of this encounter Additional Source Comments The information contained in this document represents components of the legal health record. It is not the complete legal health record.[facility]
--- OUTSIDE RECORDS SUMMARY | 2025-02-18 15:44 | XMS_ITS | Encounter Summary ---
Author Organization [facility] Address [address] [place] [address] Care Team Providers Care Stapler Machine Name Role Phone Physician, Jo Pcp Primary Care Provider Unavaila ble Encounter Details Date Type Department Care Team ([facility] st Contact Info) Description 12/16/2024 Results Follow-Up Gastroenterology - [address] [phone] Jamie Stevenson MD [address] [place] [address] Social History Tobacco Use Types Packs/Day Years [...] documented as of this encounter Care Teams Stapler Machine Relationship Specialty Start Date End Date Physician, Jo Pcp PCP - General 12/12/24 documented as of this encounter
--- OUTSIDE RECORDS SUMMARY | 2025-02-18 15:44 | XMS_ITS | Clinical Summary ---
Author Organization [facility] Address [address] [address] Phone Care Team Providers Care Food And Beverage Director Name Role Phone Rita Miranda MD Primary Care Provider + Bela London MD Unavailable Omkar Lindsay MD Unavailable Tre Dickinson MD Unavailable Irina Hampton MD Unavailable [phone] Markus Macdonald MD Unavailable [phone] Petty Schultz MD Unavailable [phone] Allergies Active Allergy Reactions Criticality Noted [...] Active vitamins A,C,E-zinc-hilda er (PRESERVISION AREDS) [id number] hgvs-zs-esos Cap Take 1 capsule by mouth 2 [...] the possibility of this amyloid deposition being industrial relations representative of either WT or V122I vATTR. I have sent out TTR gene sequencing and will try to retrieve the aspirate block to submit it to the [facility] for LC-MS. We also touched upon the [...] Type Department Care Team Description 01/28/2025 Telephone [facility] [address] [place] [address] Viridiana Rosario MD [place]dy/ scheduling coordination [...] Office Visit [facility] [address] [place] [address] Viridiana Rosario MD [address] [address] [email or web address] 04/04/2025 11:50 AM EST Blood Draw Laboratory Services, [address], 2nd [place] [address] Petty Schultz MD [address] [place] [address] [email or web address] 04/04/2025 1:00 PM EST Office Visit [facility], Division of Hematologic Oncology, [address], 7th [place] [address] Petty Schultz MD [address] [place] [address] [email or web address]@[email or web address] 09/30/2025 12:30 PM EDT Office Visit [facility] [address] [place] [address] Viridiana Rosario MD [address] [place] [address] [email or web address] 09/30/2025 1:30 PM EDT [facility], [address], 2nd [place] [address] Petty Schultz MD [address] [address] [email or web address]@[email or web address] 09/30/2025 2:30 PM EDT Office Visit [facility], Division of Hematologic Oncology, [facility] [address] [place] [address], 7th [place] [address] Petty Schultz MD [address] [address] [email or web address] Health Maintenance Due Date Last Done Comments Adult Td,Tdap Booster 1950 LIPID PANEL 1949 DEPRESSION SCREENING 1961 HEPATITIS C SCREENING 1967 OSTEOPOROSIS SCREENING INITIAL (ONE-TIME) 2014 INFLUENZA VACCINE (#1) 2024 , 12/14/2022, 12/01/2021, Additional history exists COVID-19 VACCINE (2024- season) 2024 11/24/2023, 01/17/2023, 12/02/2021, Additional history [...] EDT) SODIUM 141 136 - 145 mmol/L [facility] LIC# [id number] POTASSIUM 3.7 3.4 - 5.1 mmol/L [facility] LIC# [id number] CHLORIDE 104 98 - 107 mmol/L [facility] LIC# [id number] CO2 24 22 - 31 mmol/L [facility] LIC# [id number] BUN 32(H) 6 - 23 mg/dL [facility] LIC# [id number] CREATININE 0.92 0.50 - 1.20 mg/dL [facility] LIC# [id number] GLUCOSE 80 70 - 100 mg/dL [facility] LIC# [id number] ALBUMIN 4.1 3.5 - 5.2 g/dL [facility] LIC# [id number] TOTAL PROTEIN 6.4 6.4 - 8.3 g/dL [facility] LIC# [id number] CALCIUM 10.2 8.8 - 10.7 mg/dL [facility] LIC# [id number] ALKALINE PHOSPHATASE 68 35 - 104 U/L [facility] LIC# [id number] TOTAL BILIRUBIN 0.4 0.2 - 1.2 mg/dL [facility] LIC# [id number] AST 15 <33 U/L [facility] LIC# [id number] ALT <5 <34 U/L [facility] LIC# [id number] GLOBULIN 2.3 2.3 - 4.2 g/dL [facility] LIC# [id number] EGFR 65 >59 mL/min/1.7 3m2 [facility] LIC# [id number] Comment:Estimated glomerular filtration rate calculated using the CKD-EPI refit equation. ANION GAP 13 7 - 17 mmol/L [facility] LIC# [id number] Blood 10/01/2024 1:24 PM EDT 10/01/2024 1:49 PM EDT us Petty Schultz MD LAB BLOOD BKR ORDERABLES Final Result [facility] LIC# [id number] [address] [place] [address] from Last 3 Months or Most Recently Relevant to Health Maintenance Insurance MEDICARE PART A & B [facility] [employer]ION MEDICARE SUPPLEMENT MEDICARE PART A & B [employer] MEDICARE SUPPLEMENT MEDICARE PART A & B MEDICARE SUPPLEMENT MEDICARE PART A & B [employer] MED[employer] SUPPLEMENT MEDICARE PART A & B [employer] EXTENSION MEDICARE SUPPLEMENT MEDICARE PART A & B [employer] MEDICARE SUPPLEMENT MEDICARE PART A & B [employer] MEDICARE SUPPLEMENT MEDICARE PART A & B Member Subscriber Plan / Payer (Ef fective 2013-Present) Name:Roxana Max Member ID:[id number] Relation to Subscriber:Self Name:Roxana Max Subscriber ID:[id number] Payer ID:[id number] Group ID:Not on file Type:Medicare Address: [facility] [employer] [facility] [address] [place] [phone] [facility] MEDICARE SUPPLEMENT MEDICARE PART A & B [employer] EX[employer]ENS[employer] MEDICARE SUPPLEMENT MEDICARE PART A & B [employer] MEDICARE SUPPLEMENT Care Teams Food And Beverage Director Relationship Specialty Start Date End Date Rita Miranda MD PCP - General Internal Medicine 04/19/16 Bela London MD [address] [place] [address] Ophthalmology 09/16/17 Omkar Lindsay MD [address] [place] [address] Ophthalmology 09/16/17 Tre Dickinson MD [address] [place] [address] Hematology and Oncology 12/21/21 Irina Hampton MD [address] [place] [address] [place] [address] Cardiology 02/04/22 Markus Macdonald MD [address] [place] [address] [place] [address] [email or web address] Oncology 03/28/23 Petty Schultz MD [address] [place] [address] [email or web address] Hematology and Oncology 04/01/24 Additional Source Comments The information contained in this document represents components of the legal health record. It is not the complete legal health record.[facility]
--- OUTSIDE RECORDS SUMMARY | 2025-02-18 15:44 | XMS_ITS | Encounter Summary ---
Author Organization [facility] Address [address] [facility] [address] [place] [address] Phone Care Team Providers Care Broom Builder Name Role Phone Rita Miranda MD Primary Care Provider + Bela London MD Unavailable Omkar Lindsay MD Unavailable Tre Dickinson MD Unavailable Raj Bruner MD Unavailable [phone] Irina Hampton MD Unavailable [phone] Markus Macdonald MD Unavailable Petty Schultz MD Unavailable [phone] Encounter Details Date Type Department Care Team (Late st Contact Info) Description 12/29/2021 Procedure Pass [facility] Echocardiography [address] [place] [address] Social History Tobacco Use Types Packs/Day Years [...] Description 04/01/2025 1:20 PM EST Office Visit [facility] Cardiovascular Clinic [address] [place] [address] Viridiana Rosario MD [address] [address] [email or web address] 04/04/2025 11:50 AM EST Blood Draw Laboratory Services, [address], 2nd [place] [address] Petty Schultz MD [address] [place] [address] [email or web address] 04/04/2025 1:00 PM EST Office Visit [facility], Division of Hematologic Oncology, [address], [address] [place] [address] Petty Schultz MD [address] [place] [address] [email or web address] 09/30/2025 12:30 PM EDT Office Visit [facility] Cardiovascular Clinic [address] [place] [address] Viridiana Rosario MD [address] [place] [address] [email or web address] 09/30/2025 1:30 PM EDT Blood Draw Laboratory Services, [address] [place] [address] Petty Schultz MD [address] [place] [address] [email or web address] 09/30/2025 2:30 PM EDT Office Visit [facility], Division of Hematologic Oncology, [facility] [place] [address] [facility], 7th [place] [address] Petty Schultz MD 450 [facility] [address] [place] [address] [email or web address] documented as of this encounter Visit Diagnoses Not on filedocumented in this encounter Care Teams Broom Builder Relationship Specialty Start Date End Date Rita Miranda MD PCP - General Internal Medicine 04/19/16 Bela London MD [address] [place] [address] Ophthalmology 09/16/17 Omkar Lindsay MD [address] [place] [address] Ophthalmology 09/16/17 Tre Dickinson MD [address] [place] [address] Hematology and Oncology 12/21/21 Raj Bruner MD [address] [place] [address] Myeloma Clinic, Floor [address] [place] [address] [email or web address] Hematology and Oncology 12/21/21 03/31/24 Irina Hampton MD [address] [place] [address], [place] [address] Cardiology 02/04/22 Markus Macdonald MD [address] [place] [address] [place] [address] [email or web address] Oncology 03/28/23 Petty Schultz MD [address] [place] [address] [email or web address] Hematology and Oncology 04/01/24 documented as of this encounter Additional Source Comments The information contained in this document represents components of the legal health record. It is not the complete legal health record.[facility]
--- OUTSIDE RECORDS SUMMARY | 2025-02-18 15:44 | XMS_ITS | Encounter Summary ---
Author Organization [facility] Address [address] [facility] [address] [place] [address] Phone Care Team Providers Care Market Garden Worker Name Role Phone Rita Miranda MD Primary Care Provider + Bela London MD Unavailable Omkar Lindsay MD Unavailable Tre Dickinson MD Unavailable Raj Bruner MD Unavailable [phone] Irina Hampton MD Unavailable [phone] Markus Macdonald MD Unavailable Petty Schultz MD Unavailable [phone] Encounter Details Date Type Department Care Team (Late st Contact Info) Description 11/22/2022 Procedure Pass [facility] Echocardiography [address] [place] [address] Social History Tobacco Use Types Packs/Day Years [...] Description 04/01/2025 1:20 PM EST Office Visit [facility] [address] [place] [address] Viridiana Rosario MD [address] [address] [email or web address] 04/04/2025 11:50 AM EST Blood Draw Laboratory Services, [address], 2nd [place] [address] Petty Schultz MD [address] [place] [id number] [email or web address] 04/04/2025 1:00 PM EST Office Visit [facility] for Multiple Myeloma, Division of Hematologic Oncology, [address], [address] [place] [address] Petty Schultz MD [address] [place] [id number] [email or web address] 09/30/2025 12:30 PM EDT Office Visit [facility] Cardi[facility] [address] [place] [address] Viridiana Rosario MD [address] [address] [email or web address] 09/30/2025 1:30 PM EDT Blood Draw Laboratory Services, [address], 2nd [place] [address] Petty Schultz MD [address] [place] [address] [address] [place] [address] [email or web address] 09/30/2025 2:30 PM EDT Office Visit [facility] for Multiple Myeloma, Division of Hematologic Oncology, [address], [address] [place] [address] Petty Schultz MD [address] [place] [address] [address] [place] [address] [email or web address] documented as of this encounter Visit Diagnoses Not on filedocumented in this encounter Care Teams Market Garden Worker Relationship Specialty Start Date End Date Rita Miranda MD PCP - General Internal Medicine 04/19/16 Bela London MD [address] [place] [id number] Ophthalmology 09/16/17 Omkar Lindsay MD [address] [place] [address] Ophthalmology 09/16/17 Tre Dickinson MD [address] [place] [address] Hematology and Oncology 12/21/21 Raj Bruner MD [address] [place] [address] Myeloma Clinic, Floor [address] [place] [address] [email or web address] Hematology and Oncology 12/21/21 03/31/24 Irina Hampton MD [address] [place] [address] Cardiology 02/04/22 Markus Macdonald MD [address] [place] [address] [place] [address] [email or web address] Oncology 03/28/23 Petty Schultz MD [address] [place] [address] [email or web address] Hematology and Oncology 04/01/24 documented as of this encounter Additional Source Comments The information contained in this document represents components of the legal health record. It is not the complete legal health record.[facility]
--- OUTSIDE RECORDS SUMMARY | 2025-02-18 15:44 | XMS_ITS | Clinical Summary ---
Author Organization [facility] Address [address] [facility] 7t [place] [address] Care Team Providers Care Pen Rider Name Role Phone Unavailable Primary Care Provider [...] tablet, 3 Refills, Maintenance, 03/29/22 11:51:00 EST, [facility] [id number], 162, cm, 03/29/22 10:41:00 EST, Height, 64.7, kg, 03/29/22 10:41:00 EST, Dry Weight 2 Active Tafluprost, PF, 0.0015 % solution Administer into affected eye(s). 5 Active sulfamethoxazol e-trimethoprim (Bactrim DS) 800-160 MG tablet See Instructions, TAKE 1 TABLET BY MOUTH EVERY MONDAY, MONDAY AND MONDAY FOR 30 DAYS, # 13 tablet, 5 Refills, Maintenance, 06/20/22 11:47:00 EDT, [facility] [id number], 30, TAKE 1 TABLET BY MOUTH EVERY [...] age to complete this topic Insurance [place] [address] [place] [id number]
[2025-02-18 16:09] LABS: Alanine Aminotransferase 6 U/L (0-31); Albumin Level 4.4 g/dL (3.5-5.0); Alkaline Phosphatase 66 U/L (39-117); Anion Gap 11 (12-20); Aspartate Amino Transferase 22 U/L (5-31); Blood Urea Nitrogen 24 mg/dL (9-16); Calcium 10.0 mg/dL (8.4-10.2); Carbon Dioxide 27 mmol/L (22-29); Chloride 107 mmol/L (96-108); Cholesterol 208 mg/dL (<200); Estimated Glomerular Filt Rate > 60; HDL Cholesterol 75 mg/dL (>40); Magnesium 2.1 mg/dL (1.6-2.6); Potassium 3.6 mmol/L (3.3-5.1); Sodium 141 mmol/L (135-145); Total Protein 6.7 g/dL (6.5-8.0); Triglycerides 98 mg/dL (<150)
[2025-02-18 16:21] LABS: Vitamin B12 606 pg/mL (200-900)
== END 2025-02-18 11:51 | disposition home or self-care (01) ==
LOC: HO.HKASLDS 11:50
PROVIDERS: PCP Internal Medicine; Visit Provider Internal Medicine
DX: C90.00 Multiple myeloma not having achieved remission (principal); I10 Essential (primary) hypertension; E05.90 Thyrotoxicosis, unspecified without thyrotoxic crisis or storm; E85.9 Amyloidosis, unspecified
CPT/HCPCS: 36415; 80053; 80061; 82043; 82306; 82570; 82607; 83735; 84443; 85025